=== PATIENT | male | born 1950 | race Caucasian/White ===

== ENCOUNTER → 2017-09-29 07:39 | Outpatient (CLI) | payer MEDICARE, OTHER, SELFPAY ==
[2017-09-29 07:59] LABS: Bacteria Urine None Seen; WBC Urine None Seen (0-5/HPF)
[2017-09-29 08:45] LABS: Add Manual Diff / Slide Review NO; Basophils Percent Auto 1.6 % (0-2); Eosinophils Percent Auto 5.8 % (2-4); Hematocrit 47.5 % (41-53); Hemoglobin 16.4 g/dL (13.5-17.5); Lymphocytes Percent Auto 23.7 % (25-40); Mean Corpuscular HGB Conc 34.6 % (30-36); Mean Corpuscular Hemoglobin 30.4 PG (26-34); Mean Corpuscular Volume 87.9 fL (80-100); Monocytes Percent Auto 11.2 % (3-14); Neutrophils Absolute Auto 2700 /uL (3000-5900); Neutrophils Percent Auto 57.7 % (50-75); Platelet Count 189 X10^3/uL (150-400); Red Blood Cell Count 5.41 X10^6/uL (4.5-5.9); White Blood Cell Count 4.7 X10^3/uL (4.5-11.0)
[2017-09-29 09:00] LABS: Erythrocyte Sedimentation Rate 1 MM/HR (0-15)
[2017-09-29 09:15] LABS: Appearance Urine UA CLEAR; Bilirubin Urine UA NEGATIVE (NEGATIVE); Color Urine UA YELLOW; Glucose Urine UA NEGATIVE (Normal); Ketones Urine UA NEGATIVE (NEGATIVE); Leukocyte Esterase Urine UA NEGATIVE (NEGATIVE); Nitrite Urine UA Negative (Negative); Occult Blood Urine UA TRACE-INTACT (Negative); Protein Urine UA NEGATIVE (Negative); Specific Gravity Urine UA <=1.005 (1.000-1.035); Urobilinogen Urine UA 0.2 E.U./dL (0.2); pH Urine UA 6.5 (4.5-8.0)
[2017-09-29 09:19] LABS: Culture Indicated Urine Cult Not Indicated; RBC Urine 0-1/HPF (0-5/HPF)
[2017-09-29 09:20] LABS: Alanine Aminotransferase 34 IU/L (21-72); Albumin 4.3 g/dL (3.5-5.0); Albumin Globulin Ratio 1.4 (1.0-2.8); Alkaline Phosphatase 56 U/L (38-126); Aspartate Aminotransferase 26 IU/L (17-59); BUN Creatinine Ratio 16.4 (6-22); Bilirubin Total 0.6 mg/dL (0.2-1.3); Blood Urea Nitrogen 18 mg/dL (9-20); Calcium 9.5 mg/dL (8.4-10.2); Carbon Dioxide 30 mmol/L (22-32); Chloride 101 mmol/L (98-107); Estimated Glomerular Filt Rate > 60.0 mL/min (>60); Glucose 102 mg/dL (80-110); HEMOLYSIS < 15 (0-50); Lipase 60 U/L (23-300); Potassium 4.2 mmol/L (3.4-5.1); Sodium 141 mmol/L (137-145); Total Protein 7.3 g/dL (6.3-8.2)
== END ==
PROVIDERS: Visit Provider Internal Medicine
DX: R10.30 Lower abdominal pain, unspecified (principal)
CPT/HCPCS: 36415; 80053; 81001; 83690; 84443; 85025; 85651

== ENCOUNTER → 2018-01-13 12:25 | Outpatient (CLI) | payer MEDICARE, OTHER, SELFPAY ==
[2018-01-13 14:05] LABS: BUN Creatinine Ratio 14.5 (6-22); Blood Urea Nitrogen 16 mg/dL (9-20); Estimated Glomerular Filt Rate > 60.0 mL/min (>60)
== END ==
PROVIDERS: Visit Provider Internal Medicine
DX: R10.84 Generalized abdominal pain (principal)
CPT/HCPCS: 36415; 82565; 84520

== ENCOUNTER → 2018-01-14 08:55 | Outpatient (CLI) | payer MEDICARE, OTHER, SELFPAY ==
--- NOTE | 2018-01-14 | DI.CT.S_ITS ---
PROCEDURE: CT ABDOMEN PELVIS W CON INDICATIONS: ABDOMINAL PAIN TECHNIQUE: After the administration of oral and intravenous contrast, 5 mm thick sections acquired from the diaphragms to the symphysis. 5 mm thick coronal and sagittal reformats were performed. For radiation dose reduction, the following was used: automated exposure control, adjustment of mA and/or kV according to patient size. COMPARISON: [facility], MR, L-SPINE WITHOUT CONTRAST, 09/11/2015, 11:02. [facility], CR, KUB XRAY (1 VIEW ABDOMEN), 09/18/2015, 11:40. FINDINGS: Image quality: Excellent. ABDOMEN: Lung bases: Lung bases are clear. Heart size is normal. Solid organs: Liver is normal in size and enhancement. Gallbladder wall does not appear thickened. Biliary system is non-dilated. Pancreas enhances normally. Spleen is normal in size and enhancement. No adrenal nodules. Kidneys are normal in size and enhancement. There is mild left-sided hydronephrosis. No cause of obstruction can be seen. There is a nonenhancing cysts involving the mid left kidney that measures at least 4.5 cm. Incidental note is made of a circumaortic left renal vein. Peritoneum and bowel: Stomach, small bowel, and colon loops are normal in caliber and wall thickness. The cecum is low-lying. No free fluid or air. Diverticulosis is seen, without findings of active diverticulitis. Nodes and vessels: No retroperitoneal or mesenteric adenopathy. Aorta and inferior vena cava are normal in caliber. Miscellaneous: No ventral hernias. PELVIS: Genitourinary: Bladder wall thickness is normal. Miscellaneous: No inguinal hernias or adenopathy. Bones: No suspicious bony lesions. No vertebral body compression fractures. Degenerative changes are seen throughout, which are most prominent involving the lower lumbar spine. S-shaped scoliotic curvature is seen. IMPRESSION: Mild left-sided hydronephrosis, without a cause of obstruction identified. Incidental note is made of: Simple appearing left renal cyst Diverticulosis is seen, without findings of active diverticulitis. Dictated by: Simon Paniagua M.D. on 01/14/2018 at 10:34 Approved by: Simon Paniagua M.D. on 01/14/2018 at 10:38
== END ==
PROVIDERS: Visit Provider Internal Medicine
DX: R10.9 Unspecified abdominal pain (principal); N13.30 Unspecified hydronephrosis; N28.1 Cyst of kidney, acquired; K57.90 Diverticulosis of intestine, part unspecified, without perforation or abscess without bleeding; M51.36 Other intervertebral disc degeneration, lumbar region
CPT/HCPCS: 74177; Q9967

== ENCOUNTER → 2018-01-18 11:52 | Outpatient (CLI) | payer MEDICARE, OTHER, SELFPAY ==
[2018-01-18 13:33] LABS: Blood Urea Nitrogen 17 mg/dL (9-20)
[2018-01-18 14:02] LABS: Prostate Specific Antigen Scrn 0.812 ng/mL (0.1-4.0)
[2018-01-18 18:56] LABS: BUN Creatinine Ratio 15.5 (6-22); Estimated Glomerular Filt Rate > 60.0 mL/min (>60)
== END ==
PROVIDERS: PCP Internal Medicine; Visit Provider Internal Medicine
DX: N40.0 Benign prostatic hyperplasia without lower urinary tract symptoms (principal); R10.84 Generalized abdominal pain
CPT/HCPCS: 36415; 82565; 84520; G0103

== ENCOUNTER → 2018-01-28 08:02 | Outpatient (CLI) | payer MEDICARE, OTHER, SELFPAY ==
[2018-01-28 09:02] LABS: BUN Creatinine Ratio 17.3 (6-22); Blood Urea Nitrogen 19 mg/dL (9-20); Estimated Glomerular Filt Rate > 60.0 mL/min (>60)
== END ==
PROVIDERS: PCP Internal Medicine; Visit Provider Internal Medicine
DX: N13.30 Unspecified hydronephrosis (principal)
CPT/HCPCS: 36415; 82565; 84520

== ENCOUNTER → 2018-01-29 11:06 | Outpatient (CLI) | payer MEDICARE, OTHER, SELFPAY ==
--- NOTE | 2018-01-29 | DI.CT.S_ITS ---
PROCEDURE: CT ABDOMEN PELVIS WO/W CON INDICATIONS: HYDRONEPHROSIS TECHNIQUE: Optional 5 mm thick noncontrast images acquired from the diaphragm to the symphysis pubis. After the administration of intravenous contrast, 5 mm thick images acquired from the diaphragm to the symphysis pubis after a 10-minute delay. 2 mm thick coronal and sagittal reformats were then performed of the kidneys and ureters. For radiation dose reduction, the following was used: automated exposure control, adjustment of mA and/or kV according to patient size. COMPARISON: [facility], CT, CT ABDOMEN PELVIS W CON, 01/14/2018, 9:35. FINDINGS: Image quality: Excellent. Lung bases: Lung bases are clear. Heart size is normal. Urinary system: Both kidneys are normal in size, without hydronephrosis or nephrolithiasis on pre-contrast images. No perinephric fat stranding. There is normal bilateral renal enhancement. Subcentimeter low-density cystic lesions are present within the bilateral renal cortices consistent with multiple simple renal cysts. An exophytic 3.0 cm diameter cystic lesion is present off the lower pole of the left kidney. Renal calyces appear normal in morphology when filled with contrast. Opacified portions of both ureters demonstrate normal caliber. Bladder wall thickness is normal. No calcified bladder stones. Other solid organs: Liver is normal in size and enhancement. Gallbladder is unremarkable. Biliary system is non dilated. Pancreas enhances normally. Spleen is normal in size and enhancement. No adrenal nodules. Peritoneum and bowel: Bowel loops demonstrate normal wall thickness and caliber. The appendix is thin walled and gas filled. No free fluid or air. Nodes and vessels: No retroperitoneal or mesenteric adenopathy by size criteria. Aorta and inferior vena cava are normal in size. There are scattered atheromatous calcifications throughout the aorta and iliac arteries bilaterally. Abdominal wall: No ventral hernias. Pelvis: No pathologic free pelvic fluid. No inguinal hernias or adenopathy. Bones: No suspicious bony lesions. No vertebral body compression fractures. IMPRESSION: 1. No nephrolithiasis, hydronephrosis, hydroureter, or ureterolithiasis. Dictated by: Griselda Díaz M.D. on 01/29/2018 at 13:10 Approved by: Griselda íDaz M.D. on 01/29/2018 at 13:32
== END ==
PROVIDERS: PCP Internal Medicine; Visit Provider Internal Medicine
DX: N13.30 Unspecified hydronephrosis (principal)
CPT/HCPCS: 74178; Q9967

== ENCOUNTER 2018-03-24 08:48 | Day surgery (SDC) | payer MEDICARE, OTHER, SELFPAY ==
--- NOTE | 2018-03-24 | PATH_ITS ---
[facility] Accession Number: [id number] . 01 Material submitted: . ASCENDING COLON POLYP . 02 Diagnosis: Ascending Colon, Polyp, Biopsy: Tubular adenoma. MRV/03/25/2018 . 02 Electronically signed: . Jennifer Davila MD, Pathologist NPI- [id number] . 01 Gross description: . Received one formalin-filled container labeled with the patient's name and labeled ascending colon polyp. The specimen consists of a 0.3 cm portion of tissue, entirely submitted in one cassette. ([id number]) /FRR . 02 Pathologist provided ICD-10: D12.2 . 02 CPT . 047889 Performed at: 01 [facility] [place] [address] [id number] MD Ashu Carney MD Phone: [phone] Performed at: 02 [facility] [place] [address] [place], [place] [id number] MD Jennifer Davila MD Phone: [phone]
--- NOTE | 2018-03-24 07:56 | PM.HP.1 ---
History of Present Illness Date Patient Seen: 03/24/18 Chief complaint: [id number] Colonoscopy Narrative: 67-year-old male seen in our office on 02/23/2018 for lower abdominal pain with unremarkable CT. Patient is here for colonoscopy to rule out colon cancer. Please refer to our office note 02/23/2018 further details Patient History Social History household members: spouse Meds Home Medications Medication Instructions Recorded Confirmed Type aspirin 81 mg PO DAILY 03/24/18 03/24/18 History carisoprodol 350 mg PO Q6H PRN 03/24/18 03/24/18 History olmesartan 20 mg PO DAILY 03/24/18 03/24/18 History omeprazole 20 mg PO DAILY 03/24/18 03/24/18 History Allergies Allergy/AdvReac Type Severity Reaction Status Date / Time codeine Allergy Intermediate Rash Verified 03/24/18 09:05 oxaprozin Allergy Hives Verified 03/24/18 09:34 Exam Narrative Exam Narrative: General: Patient is overweight, not in apparent distress Cardiovascular: Regular rate and rhythm, no murmurs, rubs, or gallops; no evidence of edema; no palpable abdominal aortic aneurysm Gastrointestinal: Normoactive bowel sounds, soft, nontender, nondistended, no rebound tenderness, no hepatosplenomegaly, no evidence of hernia Assessment & Plan (1) Colon cancer screening: Current visit: No Status: Acute Assessment/Plan Narrative: 67-year-old male with a history of lower abdominal pain who is here for colon cancer screening. No current alarm symptoms. Regarding the procedure(s), the risks and potential complications, benefits, and alternatives (including not doing the procedure) were discussed with the patient. The risks include but are not limited to bleeding, splenic injury, infection, perforation which may require surgical intervention, missed lesions, and adverse reactions to sedative medicines. After a question and answer period, the patient agreed to proceed with the procedure(s) and gives informed consent.
[2018-03-24] MEDS: SODIUM CHLORIDE 0.9% 1,000 ML 70 ML IV (09:23)
[2018-03-24 09:24] VITALS: BP 139/81; PULSE 55; RESP 16; TEMP 35.7; O2SAT 95
[2018-03-24 09:25] VITALS: BMI 29.8
[2018-03-24] MEDS: fentaNYL 250 MCG/5 ML INJ IV (10:05)
[2018-03-24] MEDS: MIDAZOLAM 5 MG/5 ML VIAL IV (10:05)
[2018-03-24 10:21] VITALS: BP 107/67; PULSE 50; RESP 14; TEMP 36.2; O2SAT 95
--- NOTE | 2018-03-24 10:23 | PM.OP.ENDO ---
Operative Date/Time/Diagnoses Date of procedure: 03/24/18 Procedure Notes Procedure in detail: Surgeon: Theo Valentine MD Procedure: Colonoscopy with polypectomy Preoperative diagnosis: Colon cancer screening Postoperative diagnosis: Ascending colon polyp status post polypectomy, sigmoid diverticulosis, grade 2 internal hemorrhoids Medications: Conscious sedation using 6 mg IV of Midazolam and 150 mcg IV of Fentanyl Preanesthesia Assessment An H and P was performed/updated and the Px?s ASA class is 2. The procedure was discussed in detail with the patient. The potential risks and complications including infection, bleeding, missed lesions, perforation, need for surgery in case of perforation, prolonged hospital stay, and were explained. A brief question and answer period was allotted and once all questions were answered, informed consent was obtained. The patient was brought back to the procedure room and placed on standard monitoring. The patient?s vital signs were monitored continuously throughout the entire procedure. Prior to starting, a timeout was performed to confirm the patient?s identity, allergies, medications, and procedure. Procedure in detail The patient was placed in left lateral decubitus position and once adequate sedation was obtained a ESTEFANIA was performed. The digital rectal examination did not reveal any palpable lesions. The tip of the colonoscope was placed in the anal canal and advanced without difficulty all the way to the cecum which was identified by the appendiceal orifice and the ileocecal valve. Careful examination of all mccormick of the colon was performed with irrigation of any residual stool. In the ascending colon, there was note of a 2 mm sessile polyp which was removed by means of cold Jumbo forceps. Resection retrieval were complete with minimal bleeding. In the sigmoid colon, there was note of multiple medium-size diverticula Retroflexion was performed in the rectum which revealed grade 2 internal hemorrhoids The patient tolerated the procedure well and will be brought back to the recovery area to be discharged once criteria are met. The prep was judged to be good and adequate to identify polyps less than 5 mm. The withdrawal time was 8 min. The total physician intraservice time was 16 min. Complications There were no complications and estimated blood loss was minimal. Recommendations: Resume previous diet Continue outPx medications Follow up pathology results Repeat colonoscopy in 5 or 10 years depending on pathology results Office follow up with Dr. Murphy, if patient has any persistent lower abdominal pain An emergency contact number was given to the patient for any complications related to the procedure
[2018-03-24 10:26] VITALS: BP 100/43; PULSE 72; RESP 14; O2SAT 97
--- NOTE | 2018-03-24 10:28 | PM.DS.1 ---
History of Present Illness Chief complaint: [id number] Colonoscopy Narrative: 67-year-old male seen in our office on 02/23/2018 for lower abdominal pain with unremarkable CT. Patient is here for colonoscopy to rule out colon cancer. Please refer to our office note 02/23/2018 further details Discharge Providers Primary care physician: Bhupinder Siddiqi MD Discharge provider: Theo Valentine MD Discharge Date: 03/24/18 Exam Vital Signs (past 8 hours): - 03/24/18 09:24 Temperature 96.3 F L Pulse Rate 55 L Respiratory Rate 16 Blood Pressure 139/81 Pulse Oximetry 95 Oxygen Delivery Method Room Air Narrative Exam Narrative: General: Patient is overweight, not in apparent distress Cardiovascular: Regular rate and rhythm, no murmurs, rubs, or gallops; no evidence of edema; no palpable abdominal aortic aneurysm Gastrointestinal: Normoactive bowel sounds, soft, nontender, nondistended, no rebound tenderness, no hepatosplenomegaly, no evidence of hernia Discharge Plan Discharge Plan Patient Disposition: Home Discharge comment: We will discharge you with a copy of your procedure report Discharge Med Rec/Prescriptions Prescriptions: Continued aspirin 81 mg PO DAILY RF: 0 carisoprodol 350 mg PO Q6H PRN (Reason: Pain (Scale Score 4-6)) RF: 0 olmesartan 20 mg PO DAILY RF: 0 omeprazole 20 mg PO DAILY RF: 0 Follow up/Referrals: Bhupinder Siddiqi MD [Primary Care Provider] - Discharge Orders: Discharge (Order); Ordered 03/24/18 Ordered By: Theo Valentine Visit Report/Discharge Packet Stand Alone Forms: Colonoscopy Result: [facility], Surgery Discharge Discharge Data Primary Care Provider: Bhupinder Siddiqi V Attending Provider: Theo Valentine
[2018-03-24 10:31] VITALS: BP 112/65; PULSE 47; RESP 13; O2SAT 95
--- NOTE | 2018-03-24 10:34 | SUR.PHASEI ---
assumed care from vlad, stable pacu stay.
[2018-03-24 10:41] VITALS: BP 114/78; PULSE 55; RESP 12; TEMP 36.6; O2SAT 97
[2018-03-24 11:00] VITALS: BP 122/75; PULSE 53; RESP 16; TEMP 36.6; O2SAT 98
--- NOTE | 2018-03-24 11:07 | SUR.PHASEII ---
d/c instructions discussed with both pt and spouse. both voiced an understanding. pt dressed when ready and left when ready and left in stable condition.
== END 2018-03-24 11:19 | disposition home or self-care (01) ==
PROVIDERS: PCP Internal Medicine; Visit Provider Internal Medicine Gastroenterology
PROC: 0DJD8ZZ Inspection of Lower Intestinal Tract, Via Natural or Artificial Opening Endoscopic (ICD-10-PCS; CPT 45378; principal; 2018-03-24 10:00)
DX: Z12.11 Encounter for screening for malignant neoplasm of colon (principal); K57.30 Diverticulosis of large intestine without perforation or abscess without bleeding; K64.1 Second degree hemorrhoids; D12.2 Benign neoplasm of ascending colon
CPT/HCPCS: 45380; 88305; J2250; J3010

== ENCOUNTER → 2018-12-14 16:16 | Outpatient (CLI) | payer MEDICARE, OTHER, SELFPAY ==
--- NOTE | 2018-12-14 | DI.MRI.S_ITS ---
PROCEDURE: MR SHOULDER LT WO CON INDICATIONS: Pain in Left Shoulder with decreased range of motion TECHNIQUE: Noncontrast oblique coronal T2 fast spin echo with fat saturation, oblique sagittal T1 spin echo and T2 fast spin echo with fat saturation, axial T1 spin echo and T2 fast spin echo with fat saturation through the shoulder. COMPARISON: None. FINDINGS: Image quality: Excellent. Rotator cuff: Tendinosis and low to moderate grade articular and bursal surface partial thickness tear involving distal supraspinatus near its insertion on humeral head is seen. Distal infraspinatus tendinosis is also noted. The distal subscapularis tendon is intact. No full-thickness rotator cuff tendon rupture. Sagittal images demonstrate no significant muscle atrophy. Bones and bursae: No bone marrow contusions or fractures. Moderate acromioclavicular joint osteoarthritis is seen with downward osteophyte formation compressing on musculotendinous junction of supraspinatus. No pathologic subacromial-subdeltoid or subcoracoid bursal fluid is present. Capsule and soft tissues: In the absence of intra-articular contrast, there is signal abnormality and contour irregularity involving superior anterior labrum extending from 12 to 2:00 position and anterior-inferior labrum at the 4 to 6:00 position suggestive of labral tear. The glenohumeral ligaments appear intact. The long head of the biceps tendon demonstrates normal location and morphology. The rotator interval appears normal, without fibrosis. The coracohumeral ligament is normal in thickness. IMPRESSION: 1. Findings suggestive of superior anterior labral tear 12 to 2:00 position and anterior-inferior labral tear at 4 to 6:00 position. 2. Moderate acromioclavicular joint osteoarthritis. 3. Tendinosis and low to moderate grade articular and bursal surface partial-thickness tear involving distal supraspinatus extending to musculotendinous junction. Distal infraspinatus tendinosis. Dictated by: Gerard Ni M.D. on 12/15/2018 at 9:30 Approved by: Gerard Ni M.D. on 12/15/2018 at 9:37
== END ==
PROVIDERS: PCP Internal Medicine; Visit Provider Orthopaedic Surgery
DX: M25.512 Pain in left shoulder (principal); M19.012 Primary osteoarthritis, left shoulder; M75.112 Incomplete rotator cuff tear or rupture of left shoulder, not specified as traumatic
CPT/HCPCS: 73221

== ENCOUNTER → 2019-11-08 18:52 | Outpatient (ROUT) | payer MEDICARE, OTHER, SELFPAY ==
[2019-11-08 19:12] LABS: Aspartate Aminotransferase 33 IU/L (17-59); BUN Creatinine Ratio 16.8 (6-22); Blood Urea Nitrogen 20 mg/dL (9-20); Calcium 9.7 mg/dL (8.4-10.2); Carbon Dioxide 26 mmol/L (22-32); Chloride 102 mmol/L (98-107); Cholesterol 274 mg/dL (140-199); Estimated Glomerular Filt Rate > 60.0 mL/min (>60); Glucose 96 mg/dL (80-110); HDL Cholesterol 58 mg/dL (40-60); HEMOLYSIS 18 (0-50); LDL Cholesterol Calculated 171 mg/dL (<100); Potassium 4.7 mmol/L (3.4-5.1); Sodium 138 mmol/L (137-145); Triglycerides 227 mg/dL (35-150)
== END ==
PROVIDERS: PCP Internal Medicine; Visit Provider Internal Medicine
DX: I10 Essential (primary) hypertension (principal); E78.2 Mixed hyperlipidemia; N40.0 Benign prostatic hyperplasia without lower urinary tract symptoms
CPT/HCPCS: 80048; 80061; 84153; 84450

== ENCOUNTER → 2019-12-19 07:10 | Outpatient (CLI) | payer MEDICARE, OTHER, SELFPAY ==
--- NOTE | 2019-12-19 | DI.MRI.S_ITS ---
PROCEDURE: MR HEAD/BRAIN WO/W CON INDICATIONS: Otalgia, right ear TECHNIQUE: Noncontrast axial T1 spin echo, axial T2 fast spin echo, sagittal and axial FLAIR, coronal T2 fast spin echo, axial gradient echo, axial diffusion and ADC through the brain. After the administration of contrast, axial and coronal T1 spin echo with fat saturation through the brain. COMPARISON: None. FINDINGS: Image quality: Excellent. CSF spaces: Basal cisterns are patent. No extra-axial fluid collections. Ventricles are normal in size and shape. Brain: No midline shift. No intracranial bleeds or masses. No abnormal intracranial enhancement. There is cerebral volume loss for age. There is periventricular white matter chronic small vessel ischemic change. The brainstem appears normal. Diffusion-weighted images demonstrate no acute ischemic insults. No chronic ischemic insults. Normal intravascular flow voids are present. Skull and face: Calvarial marrow is normal in signal. Orbits appear normal. Sinuses: Sinuses and mastoids appear clear. IMPRESSION: No evidence of acute ischemia. No acute intracranial signal abnormality or enhancement. No specific visualized etiology for right ear pain. Minimal bilateral maxillary sinus disease Dictated by: José Valdes M.D. on 12/19/2019 at 9:19 Approved by: José Valdes M.D. on 12/19/2019 at 9:38
== END ==
PROVIDERS: PCP Internal Medicine; Referring Provider Internal Medicine; Visit Provider Otolaryngology Facial Plastic Surgery
DX: H92.01 Otalgia, right ear (principal)
CPT/HCPCS: 70553

== ENCOUNTER → 2019-12-22 08:39 | Outpatient (CLI) | payer MEDICARE, OTHER, SELFPAY ==
[2019-12-22 10:33] LABS: Add Manual Diff / Slide Review NO; Basophils Absolute Auto 100 /uL (0-100); Eosinophils Absolute Auto 200 /uL (0-450); Hematocrit 46.5 % (41-53); Hemoglobin 15.7 g/dL (13.5-17.5); Lymphocytes Absolute Auto 1100 /uL (1100-4500); Mean Corpuscular HGB Conc 33.7 % (30-36); Mean Corpuscular Hemoglobin 30.3 PG (26-34); Mean Corpuscular Volume 89.7 fL (80-100); Monocytes Absolute Auto 600 /uL (0-900); Neutrophils Absolute Auto 2600 /uL (1500-7000); Platelet Count 182 X10^3/uL (150-400); Red Blood Cell Count 5.19 X10^6/uL (4.5-5.9); Red Cell Distribution Width 13.4 % (11.6-14.8); White Blood Cell Count 4.7 X10^3/uL (4.5-11.0)
== END ==
PROVIDERS: PCP Internal Medicine; Referring Provider Otolaryngology Facial Plastic Surgery; Visit Provider Otolaryngology Facial Plastic Surgery
DX: H92.01 Otalgia, right ear (principal)
CPT/HCPCS: 36415; 85025

== ENCOUNTER → 2020-04-03 10:06 | Outpatient (CLI) | payer MEDICARE, OTHER, SELFPAY ==
--- NOTE | 2020-04-03 10:11 | DI.RAD.S_ITS ---
PROCEDURE: XR LUMBAR SPINE 2-3V INDICATIONS: RIGHT SIDED SCIATICA TECHNIQUE: 3 views of the lumbar spine were acquired. COMPARISON: None. FINDINGS: Bones: 5 [id number] vertebrae are present. There is normal bony alignment. No vertebral body compression fractures. No suspicious bony lesions. Moderate L4-L5 degenerative disc disease. Mild to moderate L1-L2, L2-L3 and L3-L4 degenerative disc disease. Mild L5-S1 degenerative disc disease. Mild bilateral L4-L5 and L5-S1 facet hypertrophy. Soft tissues: Overlying bowel gas pattern is normal. No suspicious soft tissue calcifications. IMPRESSION: 1. Multilevel degenerative disc disease. 2. Multilevel facet arthropathy. 3. No fracture. No acute osseous lesion. If symptoms and/or clinical suspicion for pathology persists, evaluation with MRI should be considered for further assessment. Dictated by: Katia Salinas MD, PhD on 04/03/2020 at 17:08 Approved by: Katia Salinas MD, PhD on 04/03/2020 at 17:09
== END ==
PROVIDERS: PCP Internal Medicine; Referring Provider Internal Medicine; Visit Provider Internal Medicine
DX: M51.16 Intervertebral disc disorders with radiculopathy, lumbar region (principal); M51.17 Intervertebral disc disorders with radiculopathy, lumbosacral region; M47.26 Other spondylosis with radiculopathy, lumbar region; M47.27 Other spondylosis with radiculopathy, lumbosacral region
CPT/HCPCS: 72100

== ENCOUNTER → 2020-05-17 07:11 | Outpatient (CLI) | payer MEDICARE, OTHER, SELFPAY ==
--- NOTE | 2020-05-17 07:12 | DI.MRI.S_ITS ---
PROCEDURE: MR LUMBAR SPINE WO CON INDICATIONS: lumbar radiculopathy TECHNIQUE: Noncontrast sagittal T1 spin echo and T2 fast echo, sagittal STIR, axial T1 and T2 fast spin echo through the lumbar spine. In cases with scoliosis, additional coronal T2 fast spin echo may be performed. COMPARISON: [facility], CR, XR LUMBAR SPINE 2-3V, 04/03/2020, 10:15. [facility], MR, L-SPINE WITHOUT CONTRAST, 09/11/2015, 11:02. FINDINGS: Image quality: Excellent. Alignment and Curvature: There is loss of normal lumbar lordosis. Mild grade 1 retrolisthesis of L1 on L2 and L3 on L4. Bone Marrow: Marrow is of normal overall signal. No acute vertebral body compression fractures. Mild reactive signal within the endplates adjacent to the L1-L2, L2-L3, L3-L4, and L4-L5 intervertebral discs. Spinal Cord: Conus medullaris terminates at the L1-L2 disc space level. Visualized cord demonstrates normal signal and size. Paraspinous Soft Tissues: No paravertebral masses. T12-L1: Moderate disc height loss and desiccation. Mild diffuse disc bulge. Mild facet and ligamentum flavum hypertrophy. Mild canal stenosis. Moderate right and mild left foraminal stenosis. No change. L1-L2: Moderate disc height loss and desiccation. Mild diffuse disc bulge with superimposed right paracentral protrusion. Mild facet and ligamentum flavum hypertrophy. Mild epidural lipomatosis. Mild canal stenosis. Mild bilateral foraminal stenosis. No change. L2-L3: Moderate disc height loss and desiccation. Mild diffuse disc bulge. Mild facet and ligamentum flavum hypertrophy. Mild epidural lipomatosis. Mild canal stenosis. Mild bilateral foraminal stenosis. No change. L3-L4: Moderate disc height loss and desiccation. Mild diffuse disc bulge/osteophyte. Mild facet and ligamentum flavum hypertrophy. Mild epidural lipomatosis. Mild canal stenosis. Moderate bilateral foraminal stenosis. No change. L4-L5: Moderate disc height loss and desiccation. Mild diffuse disc bulge. Mild facet and ligamentum flavum hypertrophy. Mild canal stenosis. Moderate bilateral foraminal stenosis. No change. L5-S1: Mild disc height loss. Moderate disc desiccation. Mild diffuse disc bulge. Mild facet hypertrophy bilaterally. Mild canal stenosis. Severe left and moderate right subarticular foraminal stenosis. Left L5 nerve root compression. No change. IMPRESSION: 1. Multilevel degenerative disc and facet disease, as well as ligamentum flavum hypertrophy and epidural lipomatosis. 2. Mild multilevel canal stenoses. 3. Multilevel foraminal stenosis, worst on the left at L5-S1 where there is associated intraforaminal nerve root compression. Recommend correlation with clinical symptoms to ascertain relevance of this finding. Dictated by: Niko Cooley M.D. on 05/17/2020 at 10:54 Approved by: Niko Cooley M.D. on 05/17/2020 at 11:07
== END ==
PROVIDERS: PCP Internal Medicine; Referring Provider Physical Medicine & Rehabilitation; Visit Provider Physical Medicine & Rehabilitation
DX: M51.26 Other intervertebral disc displacement, lumbar region (principal); M51.36 Other intervertebral disc degeneration, lumbar region; M48.061 Spinal stenosis, lumbar region without neurogenic claudication
CPT/HCPCS: 72148

== ENCOUNTER → 2020-06-04 14:12 | Outpatient (CLI) | payer MEDICARE, OTHER, SELFPAY ==
[2020-06-04 15:35] LABS: COVID19 -Nasal RAPID Negative (Negative)
== END ==
PROVIDERS: PCP Internal Medicine; Visit Provider Physical Medicine & Rehabilitation
DX: Z20.822 Contact with and (suspected) exposure to COVID-19 (principal)
CPT/HCPCS: 87635; C9803

== ENCOUNTER 2020-06-05 14:56 | Outpatient (CLI) | payer MEDICARE, OTHER, SELFPAY ==
[2020-06-05] VITALS (9 sets, daily range): BP systolic 136–167; BP diastolic 70–86; PULSE 53–60; RESP 12–20; TEMP 36.1; O2SAT 94–98
--- NOTE | 2020-06-05 15:01 | DI.RAD.S_ITS ---
PROCEDURE: PAIN L/S TRANSFORAMINAL INJECT INDICATIONS: SPONDYLOSIS COMPARISON: [facility], CR, XR LUMBAR SPINE 2-3V, 04/03/2020, 10:15. FINDINGS: Fluoroscopic spot filming was performed to verify placement of a spinal needle at the L4-L5 level, as labeled on the films. Appropriate location of the needle tip was confirmed by injection of iodinated contrast. IMPRESSION: Intraprocedural examination within normal limits. Dictated by: Simon Paniagua M.D. on 06/05/2020 at 15:39 Approved by: Simon Paniagua M.D. on 06/05/2020 at 15:40
[2020-06-05] MEDS: fentaNYL 100 MCG/2 ML INJ 50 MCG IV (15:43)
[2020-06-05] MEDS: MIDAZOLAM 5 MG/5 ML VIAL IV (15:43)
[2020-06-05] MEDS: IOPAMIDOL 15 ML VIAL 3 ML INJ (15:47)
[2020-06-05] MEDS: BUPIVACAINE 0.25% (PF) VIAL 2 ML INJ (15:47)
[2020-06-05] MEDS: BETAMETHASONE 30 MG/5 ML MDV 6 MG INJ (15:47)
[2020-06-05] MEDS: DEXAMETHASONE 10 MG/ML VIAL 20 MG INJ (15:47)
--- NOTE | 2020-06-05 16:00 | P.PCN_ITS ---
Date/Time/Diagnoses Date of procedure: 06/05/20 Time of procedure: 16:00 Pre-procedure diagnosis: 1. FORAMINAL STENOSIS WITH LE SYMPTOMS Post-procedure diagnosis: same Procedure Notes Procedure: 1. FLUOROSCOPICALLY GUIDED CONTRAST CONTROLLED TRANSFORAMINAL EPIDURAL STEROID INJECTION - RIGHT L4/5 TFESI Indications: Ronald is referred by Dr. Siddiqi for treatment of Foraminal Stenosis with Right LE Symptoms Physician: Elfego Wylie Total Fluoroscopy time (seconds): 13 Total sedation minutes: 13 Complications: none Procedure in detail & Post-procedure care: FINDINGS Foraminal Nerve Root Compression secondary to disc disease and facet hypertrophy DESCRIPTION OF PROCEDURE Following review of allergy and review of potential side effects and complications, including, but not necessarily limited to, infection, allergic reaction, local tissue breakdown, stroke, temporary or permanent nerve injury, paralysis, and possible , the patient indicated that the patient understood and agreed to proceed. An informed consent document was signed by the patient, witnessed by a nurse, and placed in the patient's chart. Additionally, other treatment options including medications, modalities, and physical therapy were reviewed with the patient. After review of previous anaesthesic history and IV conscious sedation the patient was deemed safe to proceed with today?s procedure with IV conscious sedation as ASA class II designation. Safety time-out was performed to confirm patient ID, procedure to be performed and site of procedure. IV sedation was accomplished with a combination of 2mg of Versed and 50mcg of Fentanyl was administered by the RN after DO order, titrated to patient comfort during the course of the procedure while the patient remained responsive to all verbal commands In the prone position following sterile prep and drape of the lumbar region, the right L4/5 posterior neuroforamen was identified fluoroscopically. The skin was anesthetized via a 25-gauge 1.5-inch needle with 1% lidocaine solution. At this point, a 25-gauge 3.5-inch spinal needle was atraumatically introduced and advanced under fluoroscopic guidance through the posterior right L4/5 neuroforamen to approximately the anterior aspect of the canal. Depth was confirmed on lateral view. Following negative aspiration, injection of approximately 1.5cc of Isovue 200 under live fluoroscopy in the AP view confirmed excellent flow along the nerve root, into the epidural space without vascular or intrathecal uptake observed Radiological data, including multiple fluoroscopic views of the lumbosacral spine, reveal a spinal needle at the right L4/5 posterior neuroforamen. Subsequent views show flow of contrast material flowing superiorly and inferiorly along the nerve root confirming epidural flow. Subsequently, a test dose of 1.5 cc of 1% lidocaine solution was administered and patient was observed for two minutes for signs or symptoms of complications, including abdominal pain, shortness of breath, bilateral upper or lower extremity weakness, nausea and vomiting, prior to steroid injection. At this point, a total of 3cc or 20mg of dexamethasone and 6mg of betamethasone was injected without incident. The procedure tolerated the procedure well without signs or symptoms of complications prior to transfer to the recovery area continued monitoring without incident. The patient was then transferred to the recovery area where they were observed for an appropriate time after the injection. The patient reported a VAS score of 7 prior to the procedure and a post- procedure VAS of 0. POST OP INSTRUCTIONS The patient was provided a Pain Log to continue to record their response to the target-specific procedure prior to follow-up visit with their referring physician. Additionally, specific post-injection care instructions and a contact number to our office were provided if concerns arise regarding possible complications associated with the procedure are suspected.
== END 2020-06-05 16:20 | disposition home or self-care (01) ==
LOC: RAD 14:59
PROVIDERS: PCP Internal Medicine; Referring Provider Physical Medicine & Rehabilitation; Visit Provider Physical Medicine & Rehabilitation
DX: M48.061 Spinal stenosis, lumbar region without neurogenic claudication (principal); M51.16 Intervertebral disc disorders with radiculopathy, lumbar region
CPT/HCPCS: 64483; 99152; J0702; J1100; J2250; J3010

== ENCOUNTER → 2020-08-07 14:22 | Outpatient (CLI) | payer MEDICARE, OTHER, SELFPAY ==
[2020-08-07 15:00] LABS: COVID19 -Nasal RAPID Negative (Negative)
== END ==
PROVIDERS: PCP Internal Medicine; Visit Provider Physical Medicine & Rehabilitation
DX: Z20.822 Contact with and (suspected) exposure to COVID-19 (principal)
CPT/HCPCS: 87635; C9803

== ENCOUNTER 2020-08-09 07:27 | Outpatient (CLI) | payer MEDICARE, OTHER, SELFPAY ==
[2020-08-09] VITALS (7 sets, daily range): BP systolic 133–181; BP diastolic 66–86; PULSE 46–53; RESP 12–23; TEMP 36.2; O2SAT 97–98
--- NOTE | 2020-08-09 07:29 | DI.RAD.S_ITS ---
PROCEDURE: PAIN L INTERLAMINAR/CAUDAL INJ INDICATIONS: SPONDYLOSIS COMPARISON: None. FINDINGS: Fluoroscopic spot filming was performed to verify placement of spinal needles at the L4-L5 level(s), as labeled on the films. Appropriate location(s) of the needle tip(s) was confirmed by injection of iodinated contrast. Dictated by: José Valdes M.D. on 08/09/2020 at 14:25 Approved by: José Valdes M.D. on 08/09/2020 at 14:25
[2020-08-09] MEDS: fentaNYL 100 MCG/2 ML INJ 50 MCG IV (08:20)
[2020-08-09] MEDS: MIDAZOLAM 5 MG/5 ML VIAL IV (08:20)
[2020-08-09] MEDS: BUPIVACAINE 0.25% (PF) VIAL 2 ML INJ (08:24)
[2020-08-09] MEDS: IOPAMIDOL 15 ML VIAL 3 ML INJ (08:24)
[2020-08-09] MEDS: DEXAMETHASONE 10 MG/ML VIAL 20 MG INJ (08:25)
[2020-08-09] MEDS: methylPREDNISolone acetate 80 MG/ML VIAL INJ (08:27)
--- NOTE | 2020-08-09 08:31 | P.PCN_ITS ---
Date/Time/Diagnoses Date of procedure: 08/09/20 Time of procedure: 08:32 Pre-procedure diagnosis: 1. HNP WITH RADICULAR FEATURES, 2. MULTILEVEL CENTRAL STENOSIS, Post-procedure diagnosis: same Procedure Notes Procedure: 1. FLUOROSCOPICALLY GUIDED CONTRAST CONTROLLED INTERLAMINAR EPIDURAL STEROID INJECTION -L4/5 Indications: Ronald is referred by Dr. Siddiqi for treatment of Bilateral Foraminal Stenosis R>L LE symptoms. Physician: Elfego Wylie Total Fluoroscopy time (seconds): 5 Total sedation minutes: 8 Complications: none Procedure in detail & Post-procedure care: FINDINGS Multilevel Central Spinal Stenosis with Nerve Root Compression DESCRIPTION OF PROCEDURE Fluoroscopically guided, contrast-controlled L4/5 translaminar epidural steroid injection. Following review of allergy and review of potential side effects and complications, including, but not necessarily limited to, infection, allergic reaction, local tissue breakdown, temporary as well as permanent nerve injury, paralysis, stroke and possible , the patient indicated that the patient understood and agreed to proceed. An informed consent document was signed by the patient, witnessed by a nurse, and placed in the patient's chart. Additionally, other treatment options including modalities, medications, and physical therapy were reviewed with the patient. After review of previous anaesthesic history and IV conscious sedation the patient was deemed safe to proceed with today?s procedure with IV conscious sedation as ASA class II designation. Safety time-out was performed to confirm patient ID, procedure to be performed and site of procedure. IV sedation was accomplished with a combination of 2mg of Versed and 50mcg of Fentanyl was administered by the RN after DO order, titrated to patient comfort during the course of the procedure while the patient remained responsive to all verbal commands In the prone position, following sterile prep and drape of the lumbar region, the L4/5 translaminar space was identified fluoroscopically. The skin was anesthetized via a 25-gauge, 1.5inch needle with 1% lidocaine solution. At this point, a 22-gauge short bevel spinal needle was atraumatically introduced and advanced under fluoroscopic guidance into the region of the L4/5 translaminar space. Depth was confirmed on lateral view. Radiological data, including multiple fluoroscopic views of the lumbar spine, reveal a spinal needle at the L4/5 translaminar space. Lateral views then show placement of the needle in the epidural space. Subsequent views show contrast material flowing superiorly and inferiorly in the epidural space. No vascular or intrathecal uptake is observed. At this point, using loss of resistance technique with saline and air, the epidural space was entered. This was confirmed following negative aspiration with injection of approximately 1.5cc of Isovue 200, showing excellent epidural flow without vascular or intrathecal uptake. At this point, 1cc of 1% lidocaine solution combined with 3cc or 20mg of dexamethasone and 80mg Depo medrol was injected without incident. The patient tolerated the procedure well without signs or symptoms of complicat ions prior to transfer to the recovery area continued monitoring without incident. The patient was then transferred to the recovery area where they were observed for an appropriate period of time after the injection. The patient reported a VAS score of 7 prior to the procedure and a post- procedure VAS of 0. POST OP INSTRUCTIONS The patient was provided a Pain Log to continue to record their response to the target-specific procedure prior to follow-up visit with their referring physician. Additionally, specific post-injection care instructions and a contact number to our office were provided if concerns arise regarding possible complications associated with the procedure are suspected.
== END 2020-08-09 08:56 | disposition home or self-care (01) ==
LOC: RAD 07:29
PROVIDERS: PCP Internal Medicine; Referring Provider Internal Medicine; Visit Provider Physical Medicine & Rehabilitation
DX: M51.16 Intervertebral disc disorders with radiculopathy, lumbar region (principal); M48.061 Spinal stenosis, lumbar region without neurogenic claudication
CPT/HCPCS: 62323; J0702; J1040; J1100; J2250; J3010

== ENCOUNTER → 2020-11-12 08:23 | Outpatient (CLI) | payer MEDICARE, OTHER, SELFPAY ==
[2020-11-12 14:54] LABS: COVID19 -Nasal RAPID Negative (Negative)
== END ==
PROVIDERS: PCP Internal Medicine; Visit Provider Physical Medicine & Rehabilitation
DX: Z20.822 Contact with and (suspected) exposure to COVID-19 (principal)
CPT/HCPCS: 87635; C9803

== ENCOUNTER 2020-11-13 14:50 | Outpatient (CLI) | payer MEDICARE, OTHER, SELFPAY ==
[2020-11-13] VITALS (8 sets, daily range): BP systolic 143–184; BP diastolic 72–84; PULSE 49–54; RESP 10–19; TEMP 36.1; O2SAT 94–98
--- NOTE | 2020-11-13 14:51 | DI.RAD.S_ITS ---
PROCEDURE: PAIN L/S TRANSFORAMINAL INJECT INDICATIONS: Right L1-2 transforaminal MARIE COMPARISON: [facility], , PAIN L/S TRANSFORAMINAL INJECT, 06/05/2020, 15:47. FINDINGS: Fluoroscopic spot filming was performed to verify placement of a spinal needle at the L1-L2 level, as labeled on the films. Appropriate location of the needle tip was confirmed by injection of iodinated contrast. IMPRESSION: Intraprocedural examination within normal limits. Dictated by: Simon Paniagua M.D. on 11/13/2020 at 15:02 Approved by: Simon Paniagua M.D. on 11/13/2020 at 15:03
[2020-11-13] MEDS: fentaNYL 100 MCG/2 ML INJ 50 MCG IV (15:23)
[2020-11-13] MEDS: MIDAZOLAM 5 MG/5 ML VIAL IV (15:23)
[2020-11-13] MEDS: BUPIVACAINE 0.25% (PF) VIAL 2 ML INJ (15:27)
[2020-11-13] MEDS: DEXAMETHASONE 10 MG/ML VIAL 20 MG INJ (15:27)
[2020-11-13] MEDS: BETAMETHASONE 30 MG/5 ML MDV 12 MG INJ (15:27)
[2020-11-13] MEDS: IOPAMIDOL 15 ML VIAL 3 ML INJ (15:27)
--- NOTE | 2020-11-13 15:36 | P.PCN_ITS ---
Date/Time/Diagnoses Date of procedure: 11/13/20 Time of procedure: 15:36 Pre-procedure diagnosis: 1. FORAMINAL STENOSIS WITH LE SYMPTOMS Post-procedure diagnosis: same Procedure Notes Procedure: 1. FLUOROSCOPICALLY GUIDED CONTRAST CONTROLLED TRANSFORAMINAL EPIDURAL STEROID INJECTION - RIGHT L1/2 TFESI Indications: Ronald is referred by Dr. Siddiqi for treatment of Foraminal Stenosis with right LE Symptoms Physician: Elfego Wylie Total Fluoroscopy time (seconds): 8 Total sedation minutes: 10 Complications: none Procedure in detail & Post-procedure care: FINDINGS Foraminal Nerve Root Compression secondary to disc disease and facet hypertrophy DESCRIPTION OF PROCEDURE Following review of allergy and review of potential side effects and complications, including, but not necessarily limited to, infection, allergic reaction, local tissue breakdown, stroke, temporary or permanent nerve injury, paralysis, and possible , the patient indicated that the patient understood and agreed to proceed. An informed consent document was signed by the patient, witnessed by a nurse, and placed in the patient's chart. Additionally, other treatment options including medications, modalities, and physical therapy were reviewed with the patient. After review of previous anaesthesic history and IV conscious sedation the patient was deemed safe to proceed with today?s procedure with IV conscious sedation as ASA class II designation. Safety time-out was performed to confirm patient ID, procedure to be performed and site of procedure. IV sedation was accomplished with a combination of 2mg of Versed and 50mcg of Fentanyl was administered by the RN after DO order, titrated to patient comfort during the course of the procedure while the patient remained responsive to all verbal comm ands In the prone position following sterile prep and drape of the lumbar region, the right L1/2 posterior neuroforamen was identified fluoroscopically. The skin was anesthetized via a 25-gauge 1.5-inch needle with 1% lidocaine solution. At this point, a 25-gauge 3.5-inch spinal needle was atraumatically introduced and advanced under fluoroscopic guidance through the posterior right L1/2 neurof oramen to approximately the anterior aspect of the canal. Depth was confirmed on lateral view. Following negative aspiration, injection of approximately 1.5cc of Isovue 200 under live fluoroscopy in the AP view confirmed excellent flow along the nerve root, into the epidural space without vascular or intrathecal uptake observed Radiological data, including multiple fluoroscopic views of the lumbosacral spine, reveal a spinal needle at the right L1/2 posterior neuroforamen. Subsequent views show flow of contrast material flowing superiorly and inferiorly along the nerve root confirming epidural flow. Subsequently, a test dose of 1.5 cc of 1% lidocaine solution was administered and patient was observed for two minutes for signs or symptoms of complications, including abdominal pain, shortness of breath, bilateral upper or lower extremity weakness, nausea and vomiting, prior to steroid injection. At this point, a total of 4cc or 20mg of dexamethasone and 12mg of betamethasone was injected without incident. The patient tolerated the procedure well without signs or symptoms of complications prior to transfer to the recovery area continued monitoring without incident. The patient was then transferred to the recovery area where they were observed for an appropriate time after the injection. The patient reported a VAS score of 7 prior to the procedure and a post-procedure VAS of 0. POST OP INSTRUCTIONS The patient was provided a Pain Log to continue to record their response to the target-specific procedure prior to follow-up visit with their referring physician. Additionally, specific post-injection care instructions and a contact number to our office were provided if concerns arise regarding possible complications associated with the procedure are suspected.
== END 2020-11-13 16:07 | disposition home or self-care (01) ==
LOC: RAD 14:51
PROVIDERS: PCP Internal Medicine; Referring Provider Physical Medicine & Rehabilitation; Visit Provider Physical Medicine & Rehabilitation
DX: M48.061 Spinal stenosis, lumbar region without neurogenic claudication (principal); M51.16 Intervertebral disc disorders with radiculopathy, lumbar region
CPT/HCPCS: 64483

== ENCOUNTER → 2021-06-11 06:59 | Outpatient (CLI) | payer MEDICARE, OTHER, SELFPAY ==
[2021-06-11 08:27] LABS: Hematocrit 46.8 % (41-53); Hemoglobin 15.9 g/dL (13.5-17.5); Mean Corpuscular HGB Conc 33.9 % (30-36); Mean Corpuscular Hemoglobin 29.9 PG (26-34); Mean Corpuscular Volume 88.2 fL (80-100); Platelet Count 199 X10^3/uL (150-400); Red Blood Cell Count 5.31 X10^6/uL (4.5-5.9); Red Cell Distribution Width 13.3 % (11.6-14.8); White Blood Cell Count 4.2 X10^3/uL (4.5-11.0)
[2021-06-11 08:42] LABS: Alanine Aminotransferase 32 IU/L (<50); Albumin 4.3 g/dL (3.5-5.0); Albumin Globulin Ratio 1.5 (1.0-2.8); Alkaline Phosphatase 55 U/L (38-126); Aspartate Aminotransferase 28 IU/L (17-59); BUN Creatinine Ratio 19.5 (6-22); Bilirubin Total 0.7 mg/dL (0.2-1.3); Blood Urea Nitrogen 23 mg/dL (9-20); Calcium 9.4 mg/dL (8.4-10.2); Carbon Dioxide 26 mmol/L (22-32); Chloride 105 mmol/L (98-107); Cholesterol 256 mg/dL (140-199); Estimated Glomerular Filt Rate > 60 mL/min (>60); Globulin 2.8 g/dL (1.7-4.1); Glucose 107 mg/dL (80-110); HDL Cholesterol 48 mg/dL (40-60); HEMOLYSIS < 15 (0-50); LDL Cholesterol Calculated 171 mg/dL (<100); Potassium 4.3 mmol/L (3.4-5.1); Sodium 140 mmol/L (137-145); Total Protein 7.1 g/dL (6.3-8.2); Triglycerides 186 mg/dL (35-150)
[2021-06-11 09:12] LABS: TSH w/ Reflex to FT4 2.98 uIU/mL (0.47-4.68)
== END ==
PROVIDERS: PCP Internal Medicine; Referring Provider Internal Medicine; Visit Provider Internal Medicine
DX: E78.2 Mixed hyperlipidemia (principal); I10 Essential (primary) hypertension
CPT/HCPCS: 36415; 80053; 80061; 84443; 85027

== ENCOUNTER → 2021-11-29 10:53 | Outpatient (CLI) | payer MEDICARE, OTHER, SELFPAY ==
[2021-11-29 11:45] LABS: BUN Creatinine Ratio 14.8 (6-22); Blood Urea Nitrogen 19 mg/dL (9-20); Calcium 9.3 mg/dL (8.4-10.2); Carbon Dioxide 29 mmol/L (22-32); Chloride 102 mmol/L (98-107); Cholesterol 243 mg/dL (140-199); Estimated Glomerular Filt Rate > 60 mL/min (>60); Glucose 98 mg/dL (80-110); HDL Cholesterol 50 mg/dL (40-60); HEMOLYSIS < 15 (0-50); LDL Cholesterol Calculated 156 mg/dL (<100); Potassium 4.4 mmol/L (3.4-5.1); Sodium 140 mmol/L (137-145); Triglycerides 184 mg/dL (35-150)
== END ==
PROVIDERS: PCP Internal Medicine; Referring Provider Internal Medicine; Visit Provider Internal Medicine
DX: E78.2 Mixed hyperlipidemia (principal); N40.1 Benign prostatic hyperplasia with lower urinary tract symptoms; I10 Essential (primary) hypertension; N13.8 Other obstructive and reflux uropathy
CPT/HCPCS: 36415; 80048; 80061; 84153

== ENCOUNTER → 2022-07-08 13:07 | Outpatient (ROUT) | payer MEDICARE, OTHER, SELFPAY ==
[2022-07-08 13:25] LABS: Blood Urea Nitrogen 19 mg/dL (9-20); Calcium 9.5 mg/dL (8.4-10.2); Carbon Dioxide 25 mmol/L (22-32); Chloride 101 mmol/L (98-107); Estimated Glomerular Filt Rate 56 mL/min (>60); Glucose 109 mg/dL (80-110); HEMOLYSIS < 15 (0-50); Potassium 3.8 mmol/L (3.4-5.1); Sodium 135 mmol/L (137-145)
== END ==
PROVIDERS: PCP Internal Medicine; Visit Provider Physician Assistant
DX: U07.1 COVID-19 (principal)
CPT/HCPCS: 80048

== ENCOUNTER → 2022-10-13 16:59 | Outpatient (CLI) | payer MEDICARE, OTHER, SELFPAY ==
[2022-10-13 18:14] LABS: BUN Creatinine Ratio 14.2 (6-22); Blood Urea Nitrogen 17 mg/dL (9-20); Calcium 9.3 mg/dL (8.4-10.2); Carbon Dioxide 25 mmol/L (22-32); Chloride 104 mmol/L (98-107); Estimated Glomerular Filt Rate > 60 mL/min (>60); Glucose 95 mg/dL (80-110); HEMOLYSIS < 15 (0-50); Potassium 4.1 mmol/L (3.4-5.1); Sodium 138 mmol/L (137-145)
== END ==
PROVIDERS: PCP Internal Medicine; Referring Provider Internal Medicine; Visit Provider Internal Medicine
DX: I10 Essential (primary) hypertension (principal); R31.9 Hematuria, unspecified
CPT/HCPCS: 80048

== ENCOUNTER → 2022-10-14 12:13 | Outpatient (CLI) | payer MEDICARE, OTHER, SELFPAY ==
--- NOTE | 2022-10-14 12:16 | DI.CT.S_ITS ---
PROCEDURE: CT KIDNEY URETER BLADDER (KUB) INDICATIONS: hematuria TECHNIQUE: Axial sections were acquired from the lung bases to the pubic symphysis. Coronal and sagittal reformats were performed. For radiation dose reduction, the following was used: automated exposure control, adjustment of mA and/or kV according to patient size. COMPARISON: [facility], CT, CT ABDOMEN PELVIS WO/W CON, 01/29/2018, 11:11. FINDINGS: Image quality: Excellent. Lung bases: Unremarkable. Heart: No significant findings. URINARY: Right Kidney: No stones or hydronephrosis. Right Ureter: No hydroureter. Left Kidney: No stones or hydronephrosis. Left Ureter: No hydroureter. Bladder: Normal wall thickness. No stones. ABDOMEN: Liver: Unremarkable. Gallbladder: Contracted, no calcified stones, within normal limits Biliary ducts: Unremarkable. Pancreas: Unremarkable. Spleen: Unremarkable. Adrenal Glands: Unremarkable. Stomach and Bowel: Moderate sigmoid diverticulosis without evidence of diverticulitis. Peritoneum: No abnormal intraperitoneal fluid. No free air. Ventral Wall: No hernia. Abdominal Nodes: No enlarged retroperitoneal or mesenteric lymph nodes. Vessels: Aorta and inferior vena cava are normal in size. PELVIS: Pelvic Organs: Mild prostate enlargement. Pelvic Nodes: Unremarkable. Miscellaneous: Bilateral fat containing inguinal hernias. Bones: Lumbar degenerative change. No lytic or blastic bony lesions. No compression fractures. IMPRESSION: 1. No renal stones, ureteral stones, or hydronephrosis. 2. Moderate sigmoid diverticulosis without evidence of diverticulitis. 3. Enlarged prostate. 4. No acute abdominal process noted. 5. Bilateral fat containing inguinal hernias. Dictated by: Harmeet Brady M.D. on 10/14/2022 at 15:21 Approved by: Harmeet Brady M.D. on 10/14/2022 at 15:29
== END ==
PROVIDERS: PCP Internal Medicine; Referring Provider Internal Medicine; Visit Provider Internal Medicine
DX: N40.0 Benign prostatic hyperplasia without lower urinary tract symptoms (principal); R31.9 Hematuria, unspecified; K57.30 Diverticulosis of large intestine without perforation or abscess without bleeding; K40.20 Bilateral inguinal hernia, without obstruction or gangrene, not specified as recurrent
CPT/HCPCS: 74176

== ENCOUNTER → 2022-12-17 15:20 | Outpatient (CLI) | payer MEDICARE, OTHER, SELFPAY ==
[2022-12-17 18:04] LABS: Alanine Aminotransferase 36 IU/L (<50); Albumin 4.3 g/dL (3.5-5.0); Albumin Globulin Ratio 1.3 (1.0-2.8); Alkaline Phosphatase 60 U/L (38-126); Aspartate Aminotransferase 29 IU/L (17-59); BUN Creatinine Ratio 17.6 (6-22); Bilirubin Total 0.5 mg/dL (0.2-1.3); Blood Urea Nitrogen 23 mg/dL (9-20); Carbon Dioxide 29 mmol/L (22-32); Chloride 100 mmol/L (98-107); Cholesterol 264 mg/dL (140-199); Estimated Glomerular Filt Rate 59 mL/min (>60); Globulin 3.4 g/dL (1.7-4.1); Glucose 83 mg/dL (80-110); HDL Cholesterol 43 mg/dL (40-60); HEMOLYSIS < 15 (0-50); LDL Cholesterol Calculated 162 mg/dL (<100); Potassium 3.5 mmol/L (3.4-5.1); Sodium 135 mmol/L (137-145); Total Protein 7.7 g/dL (6.3-8.2); Triglycerides 293 mg/dL (35-150)
[2022-12-17 18:28] LABS: Prostate Specific Antigen 0.835 ng/mL (0.10-4.00)
== END ==
PROVIDERS: PCP Internal Medicine; Referring Provider Internal Medicine; Visit Provider Internal Medicine
DX: E78.2 Mixed hyperlipidemia (principal); N40.1 Benign prostatic hyperplasia with lower urinary tract symptoms; N13.8 Other obstructive and reflux uropathy; I10 Essential (primary) hypertension
CPT/HCPCS: 36415; 80053; 80061; 84153

== ENCOUNTER → 2023-03-04 07:50 | Outpatient (CLI) | payer MEDICARE, OTHER, SELFPAY ==
--- NOTE | 2023-03-04 07:52 | DI.RAD.S_ITS ---
PROCEDURE: XR LUMBAR SPINE MIN 4V INDICATIONS: BACK PAIN TECHNIQUE: 5 views of the lumbar spine were acquired, including bilateral oblique views. COMPARISON: [facility], , XR LUMBAR SPINE 2-3V, 04/03/2020, 10:15. FINDINGS: Bones: 5 nonrib-bearing vertebrae are present. There is normal bony alignment. No vertebral body compression fractures. No suspicious bony lesions. Moderate disc height loss at all levels. Opposing endplate sclerosis at L4-5. Facet arthrosis L4 through S1. Soft tissues: Overlying bowel gas pattern is normal. No suspicious soft tissue calcifications. Oblique images: No pars defects. IMPRESSION: Moderate, multilevel degenerative disc disease and lower lumbar facet arthrosis. Dictated by: Ron Arias M.D. on 03/04/2023 at 9:06 Approved by: Ron Arias M.D. on 03/04/2023 at 9:07
== END ==
LOC: RAD 07:51
PROVIDERS: PCP Internal Medicine; Referring Provider Physical Medicine & Rehabilitation; Visit Provider Physical Medicine & Rehabilitation
DX: M47.27 Other spondylosis with radiculopathy, lumbosacral region (principal); M47.26 Other spondylosis with radiculopathy, lumbar region; M51.17 Intervertebral disc disorders with radiculopathy, lumbosacral region
CPT/HCPCS: 72110

== ENCOUNTER 2023-03-10 12:25 | Outpatient (CLI) | payer MEDICARE, OTHER, SELFPAY ==
[2023-03-10] VITALS (7 sets, daily range): BP systolic 108–135; BP diastolic 56–71; PULSE 57–61; RESP 14–22; TEMP 36.3; O2SAT 94–99
--- NOTE | 2023-03-10 13:00 | DI.RAD.S_ITS ---
PROCEDURE: PAIN L INTERLAMINAR/CAUDAL INJ INDICATIONS: RADICULOPATHY COMPARISON: [facility], XA, PAIN L INTERLAMINAR/CAUDAL INJ, 08/09/2020, 8:24. FINDINGS: Fluoroscopic spot filming was performed to verify placement of spinal needles at the L5-S1 level(s), as labeled on the films. Appropriate location(s) of the needle tip(s) was confirmed by injection of iodinated contrast. IMPRESSION: Fluoroscopic guidance utilized for an epidural steroid injection. Dictated by: Ron Arias M.D. on 03/10/2023 at 15:58 Approved by: Ron Arias M.D. on 03/10/2023 at 15:58
[2023-03-10] MEDS: MIDAZOLAM 2 MG/2 ML VIAL IV (13:10)
[2023-03-10] MEDS: BETAMETHASONE 30 MG/5 ML MDV 6 MG INJ (13:16)
[2023-03-10] MEDS: iopamidoL 15 ML VIAL 3 ML INJ (13:16)
[2023-03-10] MEDS: DEXAMETHASONE 10 MG/ML VIAL INJ ×2 (13:17→13:18)
[2023-03-10] MEDS: BUPIVACAINE 0.25% (PF) VIAL 2 ML INJ (13:17)
--- NOTE | 2023-03-10 13:32 | P.PCN_ITS ---
Date/Time/Diagnoses Date of procedure: 03/10/23 Time of procedure: 13:32 Pre-procedure diagnosis: 1. HNP WITH RADICULAR FEATURES, 2. MULTILEVEL CENTRAL STENOSIS, Post-procedure diagnosis: same Procedure Notes Procedure: 1. FLUOROSCOPICALLY GUIDED CONTRAST CONTROLLED INTERLAMINAR EPIDURAL STEROID INJECTION - L5/S1 Indications: Ronald is referred by Dr. Siddiqi for treatment of Bilateral Foraminal Stenosis L>R LE symptoms. Physician: Elfego Wylie Total Fluoroscopy time (seconds): 5 Total sedation minutes: 12 Complications: none Procedure in detail & Post-procedure care: FINDINGS Multilevel Central Spinal Stenosis with Nerve Root Compression DESCRIPTION OF PROCEDURE Fluoroscopically guided, contrast-controlled L5/S1 translaminar epidural steroid injection. Following review of allergy and review of potential side effects and complications, including, but not necessarily limited to, infection, allergic reaction, local tissue breakdown, temporary as well as permanent nerve injury, paralysis, stroke and possible , the patient indicated that the patient understood and agreed to proceed. An informed consent document was signed by the patient, witnessed by a nurse, and placed in the patient's chart. Additionally, other treatment options including modalities, medications, and physical therapy were reviewed with the patient. After review of previous anaesthesic history and IV conscious sedation the patient was deemed safe to proceed with today?s procedure with IV conscious sedation as ASA class II designation. Safety time-out was performed to confirm patient ID, procedure to be performed and site of procedure. IV sedation was accomplished with a combination of 2mg of Versed administered by the RN after DO order, titrated to patient comfort during the course of the procedure while the patient remained responsive to all verbal commands. In the prone position, following sterile prep and drape of the lumbar region, the L5/S1 translaminar space was identified fluoroscopically. The skin was anesthetized via a 25-gauge, 1.5-inch needle with 1% lidocaine solution. At this point, a 22-gauge short bevel spinal needle was atraumatically introduced and advanced under fluoroscopic guidance into the region of the L5/S1 translaminar space. Depth was confirmed on lateral view. Radiological data, including multiple fluoroscopic views of the lumbar spine, reveal a spinal needle at the L5/S1 translaminar space. Lateral views then show placement of the needle in the epidural space. Subsequent views show contrast material flowing superiorly and inferiorly in the epidural space. No vascular or intrathecal uptake is observed. At this point, using loss of resistance technique with saline and air, the epidural space was entered. This was confirmed following negative aspiration with injection of approximately 1.5cc of Isovue 200, showing excellent epidural flow without vascular or intrathecal uptake. At this point, 1 cc of 1% lidocain e solution combined with 2cc or 10mg of dexamethasone and 6mg of betamethasone was injected without incident. The patent tolerated the procedure without signs of symptoms of complications prior to transfer to the recovery area for further monitoring. The patient was then transferred to the recovery area where they were observed for an appropriate period of time after the injection. The patient reported a VAS score of 6 prior to the procedure and a post-procedure VAS of 0. POST OP INSTRUCTIONS The patient was provided a Pain Log to continue to record their response to the target-specific procedure prior to follow-up visit with their referring physician. Additionally, specific post-injection care instructions and a contact number to our office were provided if concerns arise regarding possible complications associated with the procedure are suspected.
== END 2023-03-10 13:50 | disposition home or self-care (01) ==
LOC: RAD 12:27
PROVIDERS: PCP Internal Medicine; Referring Provider Physical Medicine & Rehabilitation; Visit Provider Physical Medicine & Rehabilitation
DX: M51.17 Intervertebral disc disorders with radiculopathy, lumbosacral region (principal); M48.07 Spinal stenosis, lumbosacral region
CPT/HCPCS: 62323; 99152; J0702; J1100; J2250; J3490

== ENCOUNTER 2023-04-08 07:37 | Day surgery (SDC) | payer MEDICARE, OTHER, SELFPAY ==
[2023-04-08 08:08] VITALS: BP 131/84; PULSE 73; RESP 16; TEMP 35.9; O2SAT 97
[2023-04-08] MEDS: LACTATED RINGERS 1,000 ML 42 ML IV (08:19)
--- NOTE | 2023-04-08 08:31 | P.HP_ITS ---
History of Present Illness History of Present Illness Date Patient Seen: 04/08/23 Chief complaint: Colonoscopy Narrative: History of colon polyps [facility] Medical History (Updated 12/01/22 @ 08:38 by Bhupinder Siddiqi MD) Obstructive sleep apnea BPH w urinary obs/LUTS History of colon polyps GERD (gastroesophageal reflux disease) Chronic, continuous use of opioids Back pain, chronic Mixed hyperlipidemia Essential hypertension Herniated nucleus pulposus, L1-2 right Facet arthropathy, lumbar Lumbosacral radiculopathy at L5 Surgical History History of surgery on arm History of tonsillectomy Family History Father Depression Suicide Brother Lymphoma Social History (Updated 05/10/20 @ 10:47 by Elaine Tim LPN) household members: spouse Smoking Status: Former smoker alcohol intake: current Meds Home Medications and Allergies Home Medications Medication Instructions Recorded Confirmed Type aspirin 81 mg tablet,delayed 81 mg PO DAILY 11/29/21 04/08/23 History release omeprazole 20 mg capsule,delayed 20 mg PO DAILY 11/29/21 04/08/23 History release fluticasone propionate 50 2 spray intranasal DAILY #16 grams 12/30/21 04/08/23 Rx mcg/actuation nasal spray,suspension (Flonase Allergy Relief) pseudoephedrine HCl 30 mg tablet 60 mg (2 x 30 mg) PO Q4-6H PRN 12/30/21 04/08/23 Rx (Sudafed) nasal congestion #60 tabs pravastatin 10 mg tablet 10 mg PO BEDTIME #90 tabs 04/29/22 04/08/23 Rx olmesartan 20 mg tablet 20 mg PO DAILY #90 tabs 05/19/22 04/08/23 Rx chlorthalidone 25 mg tablet 25 mg PO DAILY blood pressure #90 12/01/22 04/08/23 Rx tabs hydrocodone 5 mg-acetaminophen 325 1 tab PO BID PRN pain #30 tabs 12/01/22 04/08/23 Rx mg tablet gabapentin 300 mg capsule 300 mg PO BID PRN back pain #180 12/04/22 04/08/23 Rx caps cyclobenzaprine 5 mg tablet 5 mg PO BID PRN muscle spasm #60 03/09/23 04/08/23 Rx tabs lorazepam 0.5 mg tablet See Rx Instructions PO DAILY PRN 03/09/23 04/08/23 Rx flight anxiety #4 tabs Allergies Allergy/AdvReac Type Severity Reaction Status Date / Time codeine Allergy Intermediate Rash Verified 04/08/23 07:57 rosuvastatin Allergy Intermediate Hives Verified 04/08/23 07:57 simvastatin Allergy Intermediate Hives Verified 04/08/23 07:57 carisoprodol [From Soma] Allergy Mild Rash Verified 04/08/23 07:57 oxaprozin Allergy Hives Verified 04/08/23 07:57 atorvastatin AdvReac Mild Nausea Verified 04/08/23 07:57 duloxetine AdvReac Mild Fatigued Verified 04/08/23 07:57 ibuprofen AdvReac Mild Verified 04/08/23 07:57 Exam Vital Signs (past 8 hours): - 04/08/23 08:08 Temperature 96.7 F L Pulse Rate 73 Respiratory Rate 16 Blood Pressure 131/84 Pulse Oximetry 97 Oxygen Delivery Method Room Air Oxygen Delivery Method Room Air Narrative Exam Narrative: Oropharynx free of lesions Chest clear to auscultation percussion Cardiac exam reveals no S3 or murmur Assessment & Plan Assessment & Plan narrative: History of colon polyps need for 5 year follow-up colonoscopy. Risks, benefits, alternatives have been explained
--- NOTE | 2023-04-08 09:02 | PM.OP.COLON ---
Operative Date/Time/Diagnoses Date of procedure: 04/08/23 Pre-op diagnosis: See indication Procedure & Clinicians Study performed: And findings colonoscopy Indications: History of colon polyps Surgeon: Rojas Christianson Procedure Notes Procedure in detail: After informed consent was obtained the patient was placed in left lateral decubitus position. The video colonoscope was introduced the rectum slowly advanced to cecum. Sigmoid was difficult to transverse. Preparation was good. On slow withdrawal mucosa was carefully examined. The scope was removed. The patient tolerated procedure well. Blood loss none Complications none Sedation mac Findings 1. Extensive sigmoid diverticulosis 2. Otherwise negative colonoscopy to cecum Patient should have follow-up colonoscopy in 7 years
[2023-04-08 09:06] VITALS: BP 106/64; PULSE 62; RESP 19; TEMP 36.6; O2SAT 20
[2023-04-08 09:11] VITALS: BP 124/74; PULSE 58; RESP 14; O2SAT 96
[2023-04-08 09:19] VITALS: BP 107/77; PULSE 58; RESP 16; TEMP 36.7; O2SAT 97
== END 2023-04-08 09:31 | disposition home or self-care (01) ==
PROVIDERS: PCP Internal Medicine; Referring Provider Internal Medicine Gastroenterology; Visit Provider Internal Medicine Gastroenterology
PROC: 0DJD8ZZ Inspection of Lower Intestinal Tract, Via Natural or Artificial Opening Endoscopic (ICD-10-PCS; CPT 45378; principal; 2023-04-08 08:30)
DX: Z12.11 Encounter for screening for malignant neoplasm of colon (principal); Z86.010 Personal history of colon polyps; K57.30 Diverticulosis of large intestine without perforation or abscess without bleeding
CPT/HCPCS: G0105; J2704

== ENCOUNTER 2023-04-21 11:02 | Emergency (ER) | payer MEDICARE, OTHER, SELFPAY ==
[2023-04-21] VITALS (7 sets, daily range): BP systolic 138–171; BP diastolic 75–81; PULSE 52–60; RESP 15; TEMP 36.4; O2SAT 96–97; BMI 29.8
--- NOTE | 2023-04-21 11:16 | ED_ITS ---
HPI - General Adult General Chief complaint: Abdominal Pain Stated complaint: ABD PAIN POST COLONOSCOPY Time Seen by Provider: 04/21/23 11:14 Source: patient Mode of arrival: Ambulatory History of Present Illness HPI narrative: 72yo M w/h/o BPH, GERD, chronic opiate use, chronic back pain, HTN, HLD presents with abdominal pain. He had a recent colonoscopy and states he was doing well after that. However, about 4-5 days ago, he developed intermittent left lower quadrant pain that has gradually worsened. It does not radiate. No nausea or vomiting, fevers or chills, chest pain, back pain, flank pain, urinary symptoms, shortness of breath, lightheadedness or passing out, bleeding, black or red stool, constipation, diarrhea, trauma, or other new concerns. No prior abdominal surgical history. He is taking Tylenol at home. Spouse here with him. No other new concerns. Per chart review, he had colonoscopy April 08 showing extensive sigmoid diverticulosis, otherwise negative colonoscopy to cecum per written report. Related Data Home Medications Medication Instructions Recorded Confirmed aspirin 81 mg tablet,delayed 81 mg PO DAILY 11/29/21 04/09/23 release omeprazole 20 mg capsule,delayed 20 mg PO DAILY 11/29/21 04/09/23 release Previous Rx's Medication Instructions Recorded fluticasone propionate 50 2 spray intranasal DAILY #16 grams 12/30/21 mcg/actuation nasal spray,suspension (Flonase Allergy Relief) pseudoephedrine HCl 30 mg tablet 60 mg (2 x 30 mg) PO Q4-6H PRN 12/30/21 (Sudafed) nasal congestion #60 tabs pravastatin 10 mg tablet 10 mg PO BEDTIME #90 tabs 04/29/22 olmesartan 20 mg tablet 20 mg PO DAILY #90 tabs 05/19/22 chlorthalidone 25 mg tablet 25 mg PO DAILY blood pressure #90 12/01/22 tabs hydrocodone 5 mg-acetaminophen 325 1 tab PO BID PRN pain #30 tabs 12/01/22 mg tablet gabapentin 300 mg capsule 300 mg PO BID PRN back pain #180 12/04/22 caps cyclobenzaprine 5 mg tablet 5 mg PO BID PRN muscle spasm #60 03/09/23 tabs lorazepam 0.5 mg tablet See Rx Instructions PO DAILY PRN 03/09/23 flight anxiety #4 tabs amoxicillin 875 mg-potassium 1 tab PO TID 10 days #30 tabs 04/21/23 clavulanate 125 mg tablet ondansetron 4 mg disintegrating 4 mg PO Q8H PRN nausea and 04/21/23 tablet vomiting #10 tabs Allergies Allergy/AdvReac Type Severity Reaction Status Date / Time codeine Allergy Intermediate Rash Verified 04/21/23 12:14 rosuvastatin Allergy Intermediate Hives Verified 04/21/23 12:14 simvastatin Allergy Intermediate Hives Verified 04/21/23 12:14 carisoprodol [From Soma] Allergy Mild Rash Verified 04/21/23 12:14 oxaprozin Allergy Hives Verified 04/21/23 12:14 atorvastatin AdvReac Mild Nausea Verified 04/21/23 12:14 duloxetine AdvReac Mild Fatigued Verified 04/21/23 12:14 ibuprofen AdvReac Mild Verified 04/21/23 12:14 Review of Systems Review of Systems Narrative: Constitutional: no fever, no chills Eyes: no visual disturbance, no discharge Ears, Nose, Mouth, Throat: no rhinorrhea, no sore throat Cardiovascular: no chest pain, no palpitations Respiratory: no cough, no shortness of breath Gastrointestinal: + abdominal pain, no vomiting, no diarrhea Genitourinary: no dysuria, no hematuria Musculoskeletal: no back pain, no neck stiffness Skin: no rash, no wound Neurological: no focal weakness, no focal numbness Patient History Medical History Obstructive sleep apnea BPH w urinary obs/LUTS History of colon polyps GERD (gastroesophageal reflux disease) Chronic, continuous use of opioids Back pain, chronic Mixed hyperlipidemia Essential hypertension Herniated nucleus pulposus, L1-2 right Facet arthropathy, lumbar Lumbosacral radiculopathy at L5 Surgical History History of surgery on arm History of tonsillectomy Family History Father Depression Suicide Brother Lymphoma Social History (Updated 05/10/20 @ 10:47 by Elaine Tim LPN) household members: spouse Smoking Status: Former smoker alcohol intake: current Smoking Status: Former smoker alcohol intake frequency: 0-2 drinks per day Substance Use Type: does not use Exam Narrative Exam Narrative: Const: no acute distress, non toxic appearing; calm, conversant, pleasant Eyes: PERRLA, EOMI ENT: mucous membranes moist Neck: supple, non-tender Resp: no respiratory distress, clear to auscultation bilaterally Card: regular rate and rhythm, no murmurs Abd: +LLQ tenderness, no other abdominal tenderness, negative Lilly's sign, no rigidity or rebound or guarding Back: no T or L spine tenderness, no CVA tenderness bilaterally Extrem: no deformities, no swelling bilateral lower extremities Neuro: ANOx4, metal machine setter grossly intact, grossly intact sensation and strength all extremities Skin: no rash, warm and dry Initial Vital Signs Initial Vital Signs: Vital Signs Temperature 97.6 F 04/21/23 11:05 Pulse Rate 56 L 04/21/23 11:05 Respiratory Rate 15 04/21/23 11:05 Blood Pressure 171/81 H 04/21/23 11:05 Pulse Oximetry 96 04/21/23 11:05 Oxygen Delivery Method Room Air 04/21/23 11:05 Course Course Course Narrative: This presentation is highly suggestive of diverticulitis and a currently well- appearing male with nonsurgical abdomen, with focal left lower quadrant tenderness, in the setting of recent confirmation of substantial diverticulosis. He is currently afebrile, well perfused. I have considered broad differential including but not limited to muscle strain or sprain, pyelonephritis, nephrolithiasis, prostatitis, bowel obstruction, aortic dissection, volvulus, hernia, among others. However as above, diverticulitis seems much more likely clinically. We are obtaining CBC, CMP, lipase, urinalysis, CT abdomen and pelvis with contrast. I am giving fluids, oxycodone, Zofran and will closely reassess. Patient understands and agrees with plan. CBC reassuring, no leukocytosis or anemia or thrombocytopenia. Lipase reassuring. CMP reassuring. Urinalysis with trace blood appropriate for follow up but no clear infection. Informed patient of this. Radiology review of imaging below, which I agree with on my independent review: CT: ABDOMEN: Liver: No solid mass. Mild diffuse hepatic steatosis. Gallbladder: No radiopaque gallstones or wall thickening. Biliary ducts: No biliary dilation. Pancreas: No ductal dilation. Spleen: Size is within normal limits. Adrenal Glands: No adrenal nodules. Kidneys and Ureters: No hydronephrosis. No solid mass. No complex renal cystic lesion which requires follow up. Resolution mild left hydronephrosis. Stomach and Bowel: [id number] sigmoid diverticulosis. This occurs in the descending colon as well. There is inflammatory change in the fat anterior to the distal descending colon suggesting mild acute diverticulitis. No free air or free fluid or abscess cavity identified. Peritoneum: No abnormal intraperitoneal fluid. No free air. Ventral Wall: No significant ventral hernia. Abdominal Nodes: No retroperitoneal or mesenteric adenopathy by size criteria. Vessels: Aorta and inferior vena cava are normal in size. PELVIS: Pelvic Organs: Enlarged prostate Bladder: Mild diffuse thickening of the bladder wall may indicate a degree of bladder outlet obstruction. Pelvic Nodes: No enlarged lymph nodes. Miscellaneous: Small bilateral fat containing inguinal hernias. Bones: No aggressive osseous abnormality. IMPRESSION: 1. Mild acute diverticulitis of the distal descending colon. 2. Enlarged prostate with possible mild findings of bladder outlet obstruction. 3. Small bilateral fat containing inguinal hernias. 4. There is no left hydronephrosis present currently. Dictated by: Harmeet Brady M.D. on 04/21/2023 at 12:31 Patient currently stable with CT findings of diverticulitis highly consistent with his presentation. No abscess or perforation. He does not appear septic. He is tolerating p.o.. He appears stable for discharge on t.i.d. Augmentin with Zofran prescription, close follow up and return precautions. He agrees with plan, with no other new concerns. Copy of CT imaging given. Repeat exam and vital signs reassuring. Questions answered. Plan reviewed. Patient discharged in stable condition. Orders Ordered: ED Orders 04/21/23 11:34 Complete Blood Count AUTO DIFF Stat Comprehensive Metabolic Panel Stat Lipase Stat 04/21/23 12:00 EKG-12 Lead Stat 04/21/23 12:07 CT abdomen pelvis w con Stat 04/21/23 12:15 Urinalysis and Microscopic Stat Discontinued Medications Amoxicillin/Clavulanate Potassium (Amoxicillin/Clav 875/125 Mg) 1 tab PO NOW ONE Stop: 04/21/23 13:05 Last Admin: 04/21/23 13:23 Dose: 1 tab Documented By: BS Sodium Chloride (Normal Saline 0.9%) 1,000 mls @ 1,000 mls/hr IV BOLUS ONE Stop: 04/21/23 13:06 Last Infusion: 04/21/23 13:06 Dose: Infused Documented By: Admin: 04/21/23 12:24 Dose: 1,000 mls/hr Documented By: FRANCES Ondansetron HCl (Ondansetron 4 Mg/2 Ml Inj) 4 mg IV NOW PRN PRN Reason: Nausea And Vomiting Oxycodone HCl (Oxycodone Ir 5 Mg Tablet) 10 mg PO NOW ONE Stop: 04/21/23 12:08 Last Admin: 04/21/23 12:24 Dose: 10 mg Documented By: FRANCES Vital Signs Vital signs: Vital Signs - 8 hr 04/21/23 11:05 04/21/23 11:38 04/21/23 11:39 Temperature 97.6 F Pulse Rate 56 L 55 L 56 L Respiratory Rate 15 Blood Pressure 171/81 H Pulse Oximetry 96 97 96 Oxygen Delivery Method Room Air Room Air 04/21/23 11:39 04/21/23 12:00 04/21/23 12:00 Temperature Pulse Rate 52 L Respiratory Rate Blood Pressure 142/81 H 146/76 H Pulse Oximetry 96 Oxygen Delivery Method 04/21/23 12:30 04/21/23 12:31 04/21/23 12:31 Temperature Pulse Rate 59 L 60 Respiratory Rate Blood Pressure 158/77 H Pulse Oximetry 97 97 Oxygen Delivery Method Room Air 04/21/23 13:00 04/21/23 13:00 Temperature Pulse Rate 58 L Respiratory Rate Blood Pressure 138/75 Pulse Oximetry 97 Oxygen Delivery Method Room Air Medical Decision Making Lab Data 04/21/23 11:34 04/21/23 11:34 Labs: Lab Results 04/21/23 04/21/23 Range/Units 11:34 12:15 WBC 5.1 (4.5-11.0) X10^3/uL RBC 5.28 (4.5-5.9) X10^6/uL Hgb 16.2 (13.5-17.5) g/dL Hct 46.4 (41-53) % MCV 87.8 (80-100) fL MCH 30.6 (26-34) PG MCHC 34.9 (30-36) % RDW 12.9 (11.6-14.8) % Plt Count 185 (150-400) X10^3/uL Neut % (Auto) 56.3 (50-75) % Lymph % (Auto) 26.5 (25-40) % Garrett % (Auto) 12.3 (3-14) % Eos % (Auto) 3.5 (2-4) % Baso % (Auto) 1.4 (0-2) % Neut # (Auto) 2900 (5983-3614) /uL Lymph # (Auto) 1400 (7645-6548) /uL Garrett # (Auto) 600 (0-900) /uL Eos # (Auto) 200 (0-450) /uL Baso # (Auto) 100 (0-100) /uL Sodium 140 (137-145) mmol/L Potassium 3.8 (3.4-5.1) mmol/L Chloride 106 (98-107) mmol/L Carbon Dioxide 27 (22-32) mmol/L BUN 18 (9-20) mg/dL Creatinine 1.17 (0.66-1.25) mg/dL Estimated GFR > 60 (>60) mL/min BUN/Creatinine Ratio 15.4 (6-22) Glucose 99 (80-110) mg/dL Calcium 9.5 (8.4-10.2) mg/dL Total Bilirubin 0.6 (0.2-1.3) mg/dL AST 25 (17-59) IU/L ALT 31 (<50) IU/L Alkaline Phosphatase 66 (38-126) U/L Total Protein 7.9 (6.3-8.2) g/dL Albumin 4.3 (3.5-5.0) g/dL Globulin 3.6 (1.7-4.1) g/dL Albumin/Globulin Ratio 1.2 (1.0-2.8) Lipase 61 (23-300) U/L Urine Color Yellow Urine Appearance Clear Urine pH 5.5 (4.5-8.0) Ur Specific [place] 1.015 (1.000-1.035) Urine Protein Negative (Negative) Urine Glucose (UA) Negative (Negative) g/dL Urine Ketones Negative (NEGATIVE) Urine Occult Blood Trace-intact (Negative) Urine Nitrate Negative (Negative) Urine Bilirubin Negative (NEGATIVE) Urine Urobilinogen 0.2 (0.2) E.U./dL Ur Leukocyte Esterase Negative (NEGATIVE) Urine RBC 0-1/hpf (0-5/HPF) Urine WBC 0-1/hpf (0-5/HPF) Ur Squamous Epith Cells 0-1 /hpf (0-5/HPF) Urine Bacteria None seen (None) Ur Culture Indicated? Cult not indicated Vol Urine Centrifuged 10ml (spun) Discharge Plan Departure Patient Disposition: Home Clinical Impression: Diverticulitis, Abdominal pain Instructions: Diverticulitis Activity Restrictions/Additional Instructions: It was a pleasure taking care of you today. It is important to fully read and understand the below. Please ask us if you have any questions. We think the most likely cause of your pain is diverticulitis, consistent with your exam and CT scan. Please take antibiotics as prescribed and be re- evaluated within 3-5 days by your primary doctor. Take this she and your attached CT. I am prescribing Augmentin and Zofran. No tests or assessments are perfect, and your condition could belt changer time. If your symptoms change or worsen, it is very important you immediately seek medical care. If you have any new or worsening pain, []shortness of breath, fever, vomiting, confusion, numbness, weakness, or anything else that concerns you, please immediately seek medical care. If you have been prescribed any medications: please read the drug package inserts on how to properly use the medication and any potential side effects. If you had labs (blood tests) or imaging (CT scan or x-rays) done during your visit: please follow up on the results of these with your primary care doctor, as discussed. In addition, please know the results we received today may be preliminary. Our usual practice is to follow up on tests within a few days of a patient's discharge from the Emergency Department and notify you of any changes. These may lead to changes to your treatment plan. However, the best way to obtain and interpret these test results is through your Primary Care Provider. If you need to update your contact information, please stop by the front end software engineer and alert the Registration personnel before you leave the Emergency Department. Thank you for the opportunity to participate in your healthcare. We are always here and happy to see you in the future. --- PLEASE TAKE THE ATTACHED IMAGING TO YOUR DOCTORS: ABDOMEN: Liver: No solid mass. Mild diffuse hepatic steatosis. Gallbladder: No radiopaque gallstones or wall thickening. Biliary ducts: No biliary dilation. Pancreas: No ductal dilation. Spleen: Size is within normal limits. Adrenal Glands: No adrenal nodules. Kidneys and Ureters: No hydronephrosis. No solid mass. No complex renal cystic lesion which requires follow up. Resolution mild left hydronephrosis. Stomach and Bowel: [id number] sigmoid diverticulosis. This occurs in the descending colon as well. There is inflammatory change in the fat anterior to the distal descending colon suggesting mild acute diverticulitis. No free air or free fluid or abscess cavity identified. Peritoneum: No abnormal intraperitoneal fluid. No free air. Ventral Wall: No significant ventral hernia. Abdominal Nodes: No retroperitoneal or mesenteric adenopathy by size criteria. Vessels: Aorta and inferior vena cava are normal in size. PELVIS: Pelvic Organs: Enlarged prostate Bladder: Mild diffuse thickening of the bladder wall may indicate a degree of bladder outlet obstruction. Pelvic Nodes: No enlarged lymph nodes. Miscellaneous: Small bilateral fat containing inguinal hernias. Bones: No aggressive osseous abnormality. IMPRESSION: 1. Mild acute diverticulitis of the distal descending colon. 2. Enlarged prostate with possible mild findings of bladder outlet obstruction. 3. Small bilateral fat containing inguinal hernias. 4. There is no left hydronephrosis present currently. Dictated by: Harmeet Brady M.D. on 04/21/2023 at 12:31 Prescriptions: New amoxicillin-pot clavulanate 875-125 mg tablet 1 tab PO TID 10 Days Qty: 30 0RF ondansetron 4 mg tablet,disintegrating 4 mg PO Q8H PRN (Reason: nausea and vomiting) Qty: 10 0RF No Action pravastatin 10 mg tablet 10 mg PO BEDTIME Qty: 90 3RF olmesartan 20 mg tablet 20 mg PO DAILY Qty: 90 3RF gabapentin 300 mg capsule 300 mg PO BID PRN (Reason: back pain) Qty: 180 3RF Rx Instructions: This script replaces the previous script. lorazepam 0.5 mg tablet See Rx Instructions PO DAILY PRN (Reason: flight anxiety) Qty: 4 2RF Rx Instructions: 1-2 before air travel as needed for flight anxiety chlorthalidone 25 mg tablet 25 mg PO DAILY Qty: 90 3RF hydrocodone-acetaminophen 5-325 mg tablet 1 tab PO BID PRN (Reason: pain) Qty: 30 0RF pseudoephedrine HCl [Sudafed] 30 mg tablet 60 mg PO Q4-6H PRN (Reason: nasal congestion) Qty: 60 5RF Rx Instructions: DNExceed 4 doses/24h fluticasone propionate [Flonase Allergy Relief] 50 mcg/actuation spray,suspension 2 spray intranasal DAILY Qty: 16 5RF Rx Instructions: administer into each nostril aspirin 81 mg tablet,delayed release (DR/EC) 81 mg PO DAILY omeprazole 20 mg capsule,delayed release(DR/EC) 20 mg PO DAILY cyclobenzaprine 5 mg tablet 5 mg PO BID PRN (Reason: muscle spasm) Qty: 60 1RF Referrals: Bhupinder Siddiqi MD [Primary Care Provider] - Stand Alone Forms: Patient Portal/API
[2023-04-21 11:47] LABS: Add Manual Diff / Slide Review NO; Basophils Absolute Auto 100 /uL (0-100); Basophils Percent Auto 1.4 % (0-2); Eosinophils Absolute Auto 200 /uL (0-450); Eosinophils Percent Auto 3.5 % (2-4); Hematocrit 46.4 % (41-53); Hemoglobin 16.2 g/dL (13.5-17.5); Lymphocytes Absolute Auto 1400 /uL (1100-4500); Lymphocytes Percent Auto 26.5 % (25-40); Mean Corpuscular HGB Conc 34.9 % (30-36); Mean Corpuscular Hemoglobin 30.6 PG (26-34); Mean Corpuscular Volume 87.8 fL (80-100); Monocytes Absolute Auto 600 /uL (0-900); Monocytes Percent Auto 12.3 % (3-14); Neutrophils Absolute Auto 2900 /uL (1500-7000); Neutrophils Percent Auto 56.3 % (50-75); Platelet Count 185 X10^3/uL (150-400); Red Blood Cell Count 5.28 X10^6/uL (4.5-5.9); Red Cell Distribution Width 12.9 % (11.6-14.8); White Blood Cell Count 5.1 X10^3/uL (4.5-11.0)
[2023-04-21 12:06] LABS: Alanine Aminotransferase 31 IU/L (<50); Albumin 4.3 g/dL (3.5-5.0); Albumin Globulin Ratio 1.2 (1.0-2.8); Alkaline Phosphatase 66 U/L (38-126); Aspartate Aminotransferase 25 IU/L (17-59); BUN Creatinine Ratio 15.4 (6-22); Bilirubin Total 0.6 mg/dL (0.2-1.3); Blood Urea Nitrogen 18 mg/dL (9-20); Calcium 9.5 mg/dL (8.4-10.2); Carbon Dioxide 27 mmol/L (22-32); Chloride 106 mmol/L (98-107); Estimated Glomerular Filt Rate > 60 mL/min (>60); Globulin 3.6 g/dL (1.7-4.1); Glucose 99 mg/dL (80-110); HEMOLYSIS < 15 (0-50); Lipase 61 U/L (23-300); Potassium 3.8 mmol/L (3.4-5.1); Sodium 140 mmol/L (137-145); Total Protein 7.9 g/dL (6.3-8.2)
--- NOTE | 2023-04-21 12:07 | DI.CT.S_ITS ---
PROCEDURE: CT ABDOMEN PELVIS W CON INDICATIONS: LLQ pain, suspect diverticulitis TECHNIQUE: After the administration of intravenous contrast, axial sections acquired from the lung bases to the pubic symphysis. Coronal and sagittal reformats were performed. For radiation dose reduction, the following was used: automated exposure control, adjustment of mA and/or kV according to patient size. COMPARISON: [facility], CT, CT ABDOMEN PELVIS W CON, 01/14/2018, 9:35. FINDINGS: Image quality: Diagnostic. Lower Chest: No significant findings. ABDOMEN: Liver: No solid mass. Mild diffuse hepatic steatosis. Gallbladder: No radiopaque gallstones or wall thickening. Biliary ducts: No biliary dilation. Pancreas: No ductal dilation. Spleen: Size is within normal limits. Adrenal Glands: No adrenal nodules. Kidneys and Ureters: No hydronephrosis. No solid mass. No complex renal cystic lesion which requires follow up. Resolution mild left hydronephrosis. Stomach and Bowel: [id number] sigmoid diverticulosis. This occurs in the descending colon as well. There is inflammatory change in the fat anterior to the distal descending colon suggesting mild acute diverticulitis. No free air or free fluid or abscess cavity identified. Peritoneum: No abnormal intraperitoneal fluid. No free air. Ventral Wall: No significant ventral hernia. Abdominal Nodes: No retroperitoneal or mesenteric adenopathy by size criteria. Vessels: Aorta and inferior vena cava are normal in size. PELVIS: Pelvic Organs: Enlarged prostate Bladder: Mild diffuse thickening of the bladder wall may indicate a degree of bladder outlet obstruction. Pelvic Nodes: No enlarged lymph nodes. Miscellaneous: Small bilateral fat containing inguinal hernias. Bones: No aggressive osseous abnormality. IMPRESSION: 1. Mild acute diverticulitis of the distal descending colon. 2. Enlarged prostate with possible mild findings of bladder outlet obstruction. 3. Small bilateral fat containing inguinal hernias. 4. There is no left hydronephrosis present currently. Dictated by: Harmeet Brady M.D. on 04/21/2023 at 12:31 Approved by: Harmeet Brady M.D. on 04/21/2023 at 12:43
[2023-04-21] MEDS: SODIUM CHLORIDE 0.9% 1,000 ML 1000 ML IV (12:24)
[2023-04-21] MEDS: OXYCODONE IR 5 MG TABLET 10 MG PO (12:24)
[2023-04-21 12:41] LABS: Appearance Urine UA CLEAR; Bilirubin Urine UA NEGATIVE (NEGATIVE); Color Urine UA YELLOW; Glucose Urine UA NEGATIVE (Negative); Ketones Urine UA NEGATIVE (NEGATIVE); Leukocyte Esterase Urine UA NEGATIVE (NEGATIVE); Nitrite Urine UA NEGATIVE (Negative); Occult Blood Urine UA TRACE-INTACT (Negative); Protein Urine UA NEGATIVE (Negative); Specific Gravity Urine UA 1.015 (1.000-1.035); Urobilinogen Urine UA 0.2 E.U./dL (0.2); pH Urine UA 5.5 (4.5-8.0)
[2023-04-21 12:49] LABS: RBC Urine 0-1/HPF (0-5/HPF); Urine Volume 10mL (spun); WBC Urine 0-1/HPF (0-5/HPF)
[2023-04-21 12:50] LABS: Bacteria Urine None Seen; Culture Indicated Urine Cult Not Indicated; Squamous Epithelial Cell Urine 0-1 /HPF (0-5/HPF)
[2023-04-21] MEDS: AMOXICILLIN/CLAV 875/125 MG 1 TAB PO (13:23)
== END 2023-04-21 13:35 | disposition home or self-care (01) ==
PROVIDERS: Emergency Provider Emergency Medicine; PCP Internal Medicine
DX: K57.92 Diverticulitis of intestine, part unspecified, without perforation or abscess without bleeding (principal); R10.32 Left lower quadrant pain
CPT/HCPCS: 36415; 74177; 80053; 81001; 83690; 85025; 93005; 93010; 96360; 99284; Q9967

== ENCOUNTER → 2023-09-15 10:09 | Outpatient (CLI) | payer MEDICARE, OTHER, SELFPAY ==
--- NOTE | 2023-09-15 10:10 | DI.RAD.S_ITS ---
PROCEDURE: XR THORACIC SPINE 2V INDICATIONS: Thoracic pain/strain TECHNIQUE: 2 views of the thoracic spine were acquired. COMPARISON: None. FINDINGS: Bones: No fractures or dislocations. No suspicious bony lesions. 12 pairs of ribs are noted, and appear intact where visualized. Soft tissues: No paravertebral stripe thickening. IMPRESSION: No acute bony abnormality. Dictated by: Ron Arias M.D. on 09/15/2023 at 10:51 Approved by: Ron Arias M.D. on 09/15/2023 at 10:51
== END ==
PROVIDERS: PCP Internal Medicine; Referring Provider Physician Assistant Surgical; Visit Provider Physician Assistant Surgical
DX: M54.6 Pain in thoracic spine (principal)
CPT/HCPCS: 72070

== ENCOUNTER → 2023-10-08 17:01 | Outpatient (CLI) | payer MEDICARE, OTHER, SELFPAY ==
[2023-10-08 17:38] LABS: Appearance Urine UA CLEAR; Bilirubin Urine UA NEGATIVE (NEGATIVE); Color Urine UA YELLOW; Glucose Urine UA NEGATIVE (Negative); Ketones Urine UA TRACE (NEGATIVE); Leukocyte Esterase Urine UA NEGATIVE (NEGATIVE); Nitrite Urine UA NEGATIVE (Negative); Occult Blood Urine UA TRACE-INTACT (Negative); Protein Urine UA NEGATIVE (Negative); pH Urine UA 5.5 (4.5-8.0)
[2023-10-08 17:48] LABS: Amorphous Sediment Urine 1+; Bacteria Urine None Seen; Culture Indicated Urine Cult Not Indicated; RBC Urine None Seen (0-5/HPF); Squamous Epithelial Cell Urine None Seen (0-5/HPF); Urine Volume 10mL (spun); WBC Urine None Seen (0-5/HPF)
== END ==
LOC: LAB 17:02
PROVIDERS: PCP Internal Medicine; Referring Provider Internal Medicine; Visit Provider Internal Medicine
DX: R10.9 Unspecified abdominal pain (principal)
CPT/HCPCS: 81001

== ENCOUNTER → 2023-10-12 14:58 | Outpatient (CLI) | payer MEDICARE, OTHER, SELFPAY ==
--- NOTE | 2023-10-12 14:59 | DI.US.S_ITS ---
PROCEDURE: US RENAL COMPLETE INDICATIONS: RIGHT FLANK PAIN TECHNIQUE: Real-time scanning was performed of the kidneys and bladder, with image documentation. COMPARISON: None. FINDINGS: Kidneys: Kidneys are normal in size. Right kidney measures 11 cm long; left kidney measures 11.5 cm long. Right renal cortical thickness is 1.3 cm; left renal cortical thickness is 1.9 cm. Renal cortical echotexture is normal. No hydronephrosis or nephrolithiasis. No suspicious solid mass lesions. Benign, anechoic cyst on the inferior pole of the left kidney measuring 5.7 cm. Bladder: Pre-void bladder volume is 162 mL. Post-void residual is 15 mL. Pre-void images demonstrate no intraluminal masses or stones. On pre-void images, neither ureteral jets are noted with color Doppler interrogation. (Of note, ureteral jets may not be detectable in up to 25% of cases due to insufficient differences in specific gravity between ureteral and bladder urine). Miscellaneous: No free pelvic fluid. IMPRESSION: No findings to explain the patient's right flank pain. No sonographic evidence of stones. No hydronephrosis. Dictated by: Ron Arias M.D. on 10/13/2023 at 10:36 Approved by: Ron Arias M.D. on 10/13/2023 at 10:37
== END ==
PROVIDERS: PCP Internal Medicine; Referring Provider Internal Medicine; Visit Provider Internal Medicine
DX: N28.1 Cyst of kidney, acquired (principal); R10.9 Unspecified abdominal pain; M54.9 Dorsalgia, unspecified; G89.29 Other chronic pain; S29.019D Strain of muscle and tendon of unspecified wall of thorax, subsequent encounter
CPT/HCPCS: 76770

== ENCOUNTER → 2024-03-03 09:35 | Outpatient (CLI) | payer MEDICARE, OTHER, SELFPAY ==
[2024-03-03 10:34] LABS: Aspartate Aminotransferase 33 IU/L (17-59); BUN Creatinine Ratio 16.1 (6-22); Blood Urea Nitrogen 25 mg/dL (9-20); Calcium 9.9 mg/dL (8.4-10.2); Carbon Dioxide 27 mmol/L (22-32); Chloride 103 mmol/L (98-107); Cholesterol 268 mg/dL (140-199); Estimated Glomerular Filt Rate 48 mL/min (>60); Glucose 107 mg/dL (80-110); HDL Cholesterol 51 mg/dL (40-60); HEMOLYSIS < 15 (0-50); LDL Cholesterol Calculated 170 mg/dL (<100); Potassium 3.8 mmol/L (3.4-5.1); Sodium 138 mmol/L (137-145); Triglycerides 237 mg/dL (35-150)
== END ==
PROVIDERS: PCP Internal Medicine; Referring Provider Internal Medicine; Visit Provider Internal Medicine
DX: E78.2 Mixed hyperlipidemia (principal); N40.1 Benign prostatic hyperplasia with lower urinary tract symptoms; N13.8 Other obstructive and reflux uropathy; M47.816 Spondylosis without myelopathy or radiculopathy, lumbar region; I10 Essential (primary) hypertension
CPT/HCPCS: 36415; 80048; 80061; 84153; 84450

== ENCOUNTER → 2024-08-10 09:35 | Outpatient (CLI) | payer MEDICARE, OTHER, SELFPAY | PROVIDERS: PCP Internal Medicine; Visit Provider Internal Medicine | DX: J02.9 Acute pharyngitis, unspecified (principal); M51.26 Other intervertebral disc displacement, lumbar region | CPT/HCPCS: 87070 ==

== ENCOUNTER → 2024-09-13 16:43 | Outpatient (CLI) | payer MEDICARE, OTHER, SELFPAY ==
[2024-09-13 17:17] LABS: Appearance Urine UA CLEAR; Bilirubin Urine UA NEGATIVE (NEGATIVE); Color Urine UA YELLOW; Glucose Urine UA NEGATIVE (Negative); Ketones Urine UA NEGATIVE (NEGATIVE); Leukocyte Esterase Urine UA NEGATIVE (NEGATIVE); Nitrite Urine UA NEGATIVE (Negative); Occult Blood Urine UA 1+ (Negative); Protein Urine UA NEGATIVE (Negative); Specific Gravity Urine UA 1.015 (1.000-1.035); Urobilinogen Urine UA 0.2 E.U./dL (0.2); pH Urine UA 6.0 (4.5-8.0)
[2024-09-13 17:22] LABS: Culture Indicated Urine Cult Not Indicated
== END ==
PROVIDERS: PCP Internal Medicine; Referring Provider Internal Medicine; Visit Provider Internal Medicine
DX: S29.019A Strain of muscle and tendon of unspecified wall of thorax, initial encounter (principal); R39.9 Unspecified symptoms and signs involving the genitourinary system
CPT/HCPCS: 81001

== ENCOUNTER 2024-12-20 00:01 | Emergency (ER) | payer MEDICARE, OTHER, SELFPAY ==
[2024-12-20 00:07] VITALS: BP 147/80; PULSE 55; RESP 16; TEMP 36.6; O2SAT 96; BMI 29.7
--- NOTE | 2024-12-20 01:32 | ED_ITS ---
HPI - Extremity Injury (Lower)
--- NOTE | 2024-12-20 01:32 | ED.LOWEXIN ---
HPI - Extremity Injury (Lower) General Chief Complaint: Extremity Injury, Lower Stated Complaint: L Leg Pain Time Seen by Provider: 12/20/24 00:16 Source: patient Mode of arrival: Ambulatory History of Present Illness HPI Narrative: 74-year-old male with history of low back pain, prior epidural spinal injections, awaiting further injections upcoming weeks with Dr Silva, increasing low back pain for the last couple of weeks, for the last 4 days having left lower extremity pain, sometimes to thigh but mostly in calf. No specific calf injury recalled. No calf swelling, no history of blood clots. No chest pain or shortness of breath. He took old supply of Soma with mild relief. Has limp with this left-sided leg pain. No injury trauma new activities recalled. No fevers or chills. No cancers known. No spinal surgeries recalled. Denies incontinence to urine or stool. No troubles with constipation or urinary tension symptoms. No numbness or tingling to the scrotal perineal perirectal region. Related Data Home Medications ?Medication ?Instructions ?Recorded ?Confirmed omeprazole 20 mg capsule,delayed 20 mg PO DAILY 11/29/21 09/13/24 release Previous Rx's ?Medication ?Instructions ?Recorded chlorthalidone 25 mg tablet 25 mg PO DAILY blood pressure #90 03/03/24 tabs pravastatin 10 mg tablet 10 mg PO BEDTIME #90 tabs 03/03/24 olmesartan 20 mg tablet 20 mg PO DAILY #90 tabs 05/12/24 gabapentin 300 mg capsule 300 mg PO BID PRN back pain #180 05/23/24 caps hydrocodone 5 mg-acetaminophen 325 1 tab PO BID PRN pain #30 tabs 08/10/24 mg tablet lorazepam 0.5 mg tablet See Rx Instructions PO DAILY PRN 08/10/24 flight anxiety #4 tabs baclofen 10 mg tablet 10 mg PO TID PRN muscle spasm #30 12/16/24 tabs cyclobenzaprine 10 mg tablet 10 mg PO TID #14 tabs 12/20/24 hydrocodone 7.5 mg-acetaminophen 1 tab PO Q6H PRN pain #10 tabs 12/20/24 325 mg tablet naproxen 500 mg tablet 500 mg PO BID 7 days #14 tabs 12/20/24 prednisone 20 mg tablet 40 mg (2 x 20 mg) PO DAILY 5 days 12/20/24 #10 tabs Allergies Allergy/AdvReac Type Severity Reaction Status Date / Time codeine Allergy Intermediate Rash Verified 12/20/24 00:09 rosuvastatin Allergy Intermediate Hives Verified 12/20/24 00:09 simvastatin Allergy Intermediate Hives Verified 12/20/24 00:09 carisoprodol (From Soma) Allergy Mild Rash Verified 12/20/24 00:09 guaifenesin (From Robitussin) Allergy Mild Hives Verified 12/20/24 00:09 oxaprozin Allergy Hives Verified 12/20/24 00:09 atorvastatin AdvReac Mild Nausea Verified 12/20/24 00:09 duloxetine AdvReac Mild Fatigued Verified 12/20/24 00:09 ibuprofen AdvReac Mild Verified 12/20/24 00:09 Patient History Medical History Back pain, chronic BPH w urinary obs/LUTS Chronic, continuous use of opioids Essential hypertension Facet arthropathy, lumbar GERD (gastroesophageal reflux disease) Herniated nucleus pulposus, L1-2 right History of colon polyps Lumbosacral radiculopathy at L5 Mixed hyperlipidemia Obstructive sleep apnea Surgical History History of surgery on arm History of tonsillectomy Family History Father Depression Suicide Brother Lymphoma Social History (Updated 05/10/20 @ 10:47 by Elaine Tim LPN) household members: spouse Smoking Status: Former smoker alcohol intake: current Smoking Status: Former smoker alcohol intake frequency: 0-2 drinks per day Exam Narrative Exam Narrative: GENERAL: Well-developed patient, in mild distress. HEAD: Atraumatic. Normocephalic. EYES: Pupils equal round and reactive. Extraocular motions intact. No scleral icterus. No injection or drainage. ENT: Nose without bleeding, purulent drainage. Throat without erythema, tonsillar hypertrophy or exudate. Airway patent. NECK: Trachea midline. Non tender CARDIOVASCULAR: Regular rate and rhythm without murmurs, gallops, or rubs. RESPIRATORY: Clear to auscultation. Breath sounds equal bilaterally. No wheezes, rales, or rhonchi. GASTROINTESTINAL: Abdomen soft, non-tender, nondistended. EXTREMITIES: No edema or joint tenderness to left lower extremity.. No tenderness at origin of gastrocnemius/soleus muscles, no calf pain with dorsiflexion at ipsilateral left ankle. BACK: Nontender without deformity or crepitance. No flank tenderness. No tenderness midline or paraspinal musculature, no skin changes lumbar or thoracic. Straight leg raise 45? left-sided with leg pain. NEURO: AOx3. Motor functions grossly nonfocal. SKIN: No rash or erythema of visible areas Initial Vital Signs Initial Vital Signs: Vital Signs Temperature 97.8 F 12/20/24 00:07 Pulse Rate 55 L 12/20/24 00:07 Respiratory Rate 16 12/20/24 00:07 Blood Pressure 147/80 H 12/20/24 00:07 Pulse Oximetry 96 12/20/24 00:07 Oxygen Delivery Method Room Air 12/20/24 00:07 Course Orders Ordered: Discontinued Medications Hydrocodone Bitart/Acetaminophen (Hydrocodone/Acet 5/325 Prepack) 1 bottle MISC DIRECTED ONE Stop: 12/20/24 02:23 Last Admin: 12/20/24 02:39 Dose: 1 bottle Documented By: LILIA Cyclobenzaprine HCl (Cyclobenzaprine 10 Mg Tablet) 10 mg PO NOW ONE Stop: 12/20/24 02:14 Last Admin: 12/20/24 02:32 Dose: 10 mg Documented By: LILIA Cyclobenzaprine HCl (Cyclobenzaprine 10 Mg Prepack) 1 bottle MISC DIRECTED ONE Stop: 12/20/24 02:14 Last Admin: 12/20/24 02:39 Dose: 1 bottle Documented By: LILIA Hydromorphone HCl (Hydromorphone 1 Mg/Ml Syringe) 1 mg IM NOW ONE Stop: 12/20/24 02:14 Last Admin: 12/20/24 02:31 Dose: 1 mg Documented By: LILIA Ketorolac Tromethamine (Ketorolac 30 Mg/Ml Vial) 30 mg IM NOW ONE Stop: 12/20/24 02:14 Last Admin: 12/20/24 02:31 Dose: 30 mg Documented By: LILIA Prednisone (Prednisone 20 Mg Tablet) 60 mg PO NOW ONE Stop: 12/20/24 02:14 Last Admin: 12/20/24 02:32 Dose: 60 mg Documented By: LILIA Vital Signs Vital signs: Vital Signs - 8 hr 12/20/24 00:07 12/20/24 02:53 Temperature 97.8 F Pulse Rate 55 L 50 L Respiratory Rate 16 16 Blood Pressure 147/80 H 152/77 H Pulse Oximetry 96 98 Oxygen Delivery Method Room Air Room Air MDM - Extremity Injury (Lower) MDM Narrative Medical decision making narrative: 74-year-old male with ongoing back pain, prior EPSI awaiting next spinal injections. Now with 4 days duration nontraumatic left lower extremity pain, sometimes at thigh, mostly at catheterization. No direct calf tenderness or swelling or redness, doubt DVT, negative Homans, exam also seems inconsistent with gastrocnemius/soleus tear. No signs and symptoms cauda equina syndrome at present. Suspect radiculopathy. Discussed CT scanning lumbar spine, declined. IM Dilaudid, IM Toradol, oral cyclobenzaprine, oral prednisone. Symptoms improved, discharged home with . Home pack cyclobenzaprine, hydrocodone/APAP. Prescription sent for further prednisone pulse, hydrocodone/APAP, cyclobenzaprine, naproxen. Follow up with Dr. Green, call his office later today during open hours to see if his ePSS eye appointment could be moved up. Discharged home with family. Return precautions discussed. Discharge Plan Departure Patient Disposition: Home Clinical Impression: Pain of left leg, Chronic low back pain Activity Restrictions/Additional Instructions: History of back pain, prior back injections, scheduled to have another back injection upcoming. Now with nontraumatic left calf pain. No incontinence of urine or stool, no numbness or tingling of the genital perirectal perineal region. Painful with movement of the calf. No direct tenderness to the gastrocnemius or worse pain with dorsiflexion of the ankle, seems less likely to have gastrocnemius or soleus tear or strain of the muscle. Suspect radiculopathy related pain. Trial of pain medication, muscle relaxants, steroid. Injectable pain medications and anti-inflammatory medications given, with oral muscle relaxant cyclobenzaprine. Prescription sent to your requested pharmacy for hydrocodone/acetaminophen, further cyclobenzaprine muscle relaxant, prednisone further steroid, naproxen anti-inflammatory medication. Call the office of Dr. Green tomorrow during regular hours, to see if your back injection procedure can be moved up. Return to this/nearest emergency department for any change worsening symptoms or concerns prior. We did briefly discuss CT scanning of your lumbar spine, likely more effective to have MRI lumbar spine imaging which is not available at this hour, and there is considerable radiation exposure with CT scanning. Hold off on CT imaging for now. Further imaging as needed through your chronic low back pain management team. Prescriptions: New cyclobenzaprine 10 mg tablet 10 mg PO TID Qty: 14 0RF prednisone 20 mg tablet 40 mg PO DAILY 5 Days Qty: 10 0RF naproxen 500 mg tablet 500 mg PO BID 7 Days Qty: 14 0RF hydrocodone-acetaminophen 7.5-325 mg tablet 1 tab PO Q6H PRN (Reason: pain) Qty: 10 0RF No Action olmesartan 20 mg tablet 20 mg PO DAILY Qty: 90 3RF gabapentin 300 mg capsule 300 mg PO BID PRN (Reason: back pain) Qty: 180 3RF baclofen 10 mg tablet 10 mg PO TID PRN (Reason: muscle spasm) Qty: 30 1RF hydrocodone-acetaminophen 5-325 mg tablet 1 tab PO BID PRN (Reason: pain) Qty: 30 0RF lorazepam 0.5 mg tablet See Rx Instructions PO DAILY PRN (Reason: flight anxiety) Qty: 4 2RF Rx Instructions: 1-2 before air travel as needed for flight anxiety omeprazole 20 mg capsule,delayed release(DR/EC) 20 mg PO DAILY pravastatin 10 mg tablet 10 mg PO BEDTIME Qty: 90 3RF chlorthalidone 25 mg tablet 25 mg PO DAILY Qty: 90 3RF Referrals: Bhupinder Siddiqi MD [Primary Care Provider, Internal Medicine] Stand Alone Forms: Patient Portal/API
[2024-12-20] MEDS: KETOROLAC 30 MG/ML VIAL IM (02:31)
[2024-12-20] MEDS: CYCLOBENZAPRINE 10 MG TABLET PO (02:32)
[2024-12-20] MEDS: CYCLOBENZAPRINE 10 MG PREPACK 1 BOTTLE MISC (02:39)
[2024-12-20 02:53] VITALS: BP 152/77; PULSE 50; RESP 16; O2SAT 98
== END 2024-12-20 02:54 | disposition home or self-care (01) ==
PROVIDERS: Emergency Provider Emergency Medicine; PCP Internal Medicine
DX: M79.605 Pain in left leg (principal); M54.50 Low back pain, unspecified
CPT/HCPCS: 96372; 99283; J1171; J1885

== ENCOUNTER 2024-12-23 10:01 | Emergency (ER) | payer MEDICARE, OTHER, SELFPAY ==
[2024-12-23 10:04] VITALS: BP 162/82; PULSE 55; RESP 14; TEMP 36.1; O2SAT 94; BMI 29.7
--- NOTE | 2024-12-23 10:09 | DI.US.S_ITS ---
PROCEDURE: US PERIPH VENOUS LOW EXTREM LT
--- NOTE | 2024-12-23 10:12 | ED_ITS ---
HPI - Extremity Problem
--- NOTE | 2024-12-23 10:12 | ED.EXTPRO ---
HPI - Extremity Problem General Chief complaint: Extremity Problem,Nontraumatic Stated complaint: Left ankle pain radiating to groin area 7 days Time Seen by Provider: 12/23/24 10:09 Mode of arrival: Ambulatory History of Present Illness HPI Narrative: 74-year-old with a history of low back pain prior spinal injections seen back 3 days ago for back pain now presents with left leg pain radiating from left ankle to left knee but also raised to the left thigh. He did also get chiropractor adjustments which his back is no longer causing pain. He denies any chest pain shortness breath dyspnea on exertion. Nothing makes it better or worse. No recent long distance travel, or trauma to the area or any history of DVT. Other than what is stated 14 point review system is negative. Related Data Home Medications ?Medication ?Instructions ?Recorded ?Confirmed omeprazole 20 mg capsule,delayed 20 mg PO DAILY 11/29/21 09/13/24 release Previous Rx's ?Medication ?Instructions ?Recorded chlorthalidone 25 mg tablet 25 mg PO DAILY blood pressure #90 03/03/24 tabs pravastatin 10 mg tablet 10 mg PO BEDTIME #90 tabs 03/03/24 olmesartan 20 mg tablet 20 mg PO DAILY #90 tabs 05/12/24 gabapentin 300 mg capsule 300 mg PO BID PRN back pain #180 05/23/24 caps hydrocodone 5 mg-acetaminophen 325 1 tab PO BID PRN pain #30 tabs 08/10/24 mg tablet lorazepam 0.5 mg tablet See Rx Instructions PO DAILY PRN 08/10/24 flight anxiety #4 tabs baclofen 10 mg tablet 10 mg PO TID PRN muscle spasm #30 12/16/24 tabs cyclobenzaprine 10 mg tablet 10 mg PO TID #14 tabs 12/20/24 hydrocodone 7.5 mg-acetaminophen 1 tab PO Q6H PRN pain #10 tabs 12/20/24 325 mg tablet naproxen 500 mg tablet 500 mg PO BID 7 days #14 tabs 12/20/24 prednisone 20 mg tablet 40 mg (2 x 20 mg) PO DAILY 5 days 12/20/24 #10 tabs Allergies Allergy/AdvReac Type Severity Reaction Status Date / Time codeine Allergy Intermediate Rash Verified 12/23/24 10:04 rosuvastatin Allergy Intermediate Hives Verified 12/23/24 10:04 simvastatin Allergy Intermediate Hives Verified 12/23/24 10:04 carisoprodol (From Soma) Allergy Mild Rash Verified 12/23/24 10:04 guaifenesin (From Robitussin) Allergy Mild Hives Verified 12/23/24 10:04 oxaprozin Allergy Hives Verified 12/23/24 10:04 atorvastatin AdvReac Mild Nausea Verified 12/23/24 10:04 duloxetine AdvReac Mild Fatigued Verified 12/23/24 10:04 ibuprofen AdvReac Mild Verified 12/23/24 10:04 Review of Systems Review of Systems ROS Unobtainable: All systems reviewed & are unremarkable except as noted in HPI and below Patient History Medical History Back pain, chronic BPH w urinary obs/LUTS Chronic, continuous use of opioids Essential hypertension Facet arthropathy, lumbar GERD (gastroesophageal reflux disease) Herniated nucleus pulposus, L1-2 right History of colon polyps Lumbosacral radiculopathy at L5 Mixed hyperlipidemia Obstructive sleep apnea Surgical History History of surgery on arm History of tonsillectomy Family History Father Depression Suicide Brother Lymphoma Social History (Updated 05/10/20 @ 10:47 by Elaine Tim LPN) household members: spouse Smoking Status: Unknown if ever smoked alcohol intake: current Smoking Status: Unknown if ever smoked alcohol intake frequency: 0-2 drinks per day Exam Narrative Exam Narrative: GENERAL: [74] year old patient appears stated age. Well-developed patient, in mild distress. HEAD: Atraumatic. Normocephalic. EYES: Pupils equal round and reactive. Extraocular motions intact. No scleral icterus. No injection or drainage. ENT: Nose without bleeding, purulent drainage. Throat without erythema, tonsillar hypertrophy or exudate. Airway patent. NECK: Trachea midline. Non tender CARDIOVASCULAR: Regular rate and rhythm without murmurs, gallops, or rubs. RESPIRATORY: Clear to auscultation. Breath sounds equal bilaterally. No wheezes, rales, or rhonchi. GASTROINTESTINAL: Abdomen soft, non-tender, nondistended. EXTREMITIES: No edema or joint tenderness. Equal symmetrical calf bilaterally non tender on exam motor sensory intact 2 DP +2 PT cap refill less than 2 seconds bilateral lower extremity BACK: Nontender without deformity or crepitance. No flank tenderness. NEURO: AOx3. SKIN: No rash or erythema of visible areas Initial Vital Signs Initial Vital Signs: Vital Signs Temperature 97.0 F L 12/23/24 10:04 Pulse Rate 55 L 12/23/24 10:04 Respiratory Rate 14 12/23/24 10:04 Blood Pressure 162/82 H 12/23/24 10:04 Pulse Oximetry 94 12/23/24 10:04 Oxygen Delivery Method Room Air 12/23/24 10:04 Course Orders Ordered: ED Orders 12/23/24 10:09 periph venous low extrem lt Stat Vital Signs Vital signs: Vital Signs - 8 hr 12/23/24 10:04 Temperature 97.0 F L Pulse Rate 55 L Respiratory Rate 14 Blood Pressure 162/82 H Pulse Oximetry 94 Oxygen Delivery Method Room Air MDM - Extremity (Nontraumatic) MDM Narrative Medical decision making narrative: All lab work, vital signs, nurse triage note, medication list, previous ER visits, and all imaging reviewed. Ultrasound negative for DVT. Differential dx - DVT, superficial thrombophebilitis muscle strain. DC home to alternate stretching massage Tylenol ibuprofen for which he is already on muscle relaxants and steroids. Discharge Plan Departure Patient Disposition: Home Clinical Impression: Acute leg pain Qualifiers: Laterality: left Qualified Code(s): M79.605 - Pain in left leg Instructions: DI for Leg Pain Activity Restrictions/Additional Instructions: Return with new or worsening symptoms. Alternate Tylenol ibuprofen stretching massaging as needed for pain control. Follow up PCP in 1-2 weeks if no improvement in symptoms. Prescriptions: No Action olmesartan 20 mg tablet 20 mg PO DAILY Qty: 90 3RF gabapentin 300 mg capsule 300 mg PO BID PRN (Reason: back pain) Qty: 180 3RF baclofen 10 mg tablet 10 mg PO TID PRN (Reason: muscle spasm) Qty: 30 1RF hydrocodone-acetaminophen 5-325 mg tablet 1 tab PO BID PRN (Reason: pain) Qty: 30 0RF lorazepam 0.5 mg tablet See Rx Instructions PO DAILY PRN (Reason: flight anxiety) Qty: 4 2RF Rx Instructions: 1-2 before air travel as needed for flight anxiety omeprazole 20 mg capsule,delayed release(DR/EC) 20 mg PO DAILY pravastatin 10 mg tablet 10 mg PO BEDTIME Qty: 90 3RF chlorthalidone 25 mg tablet 25 mg PO DAILY Qty: 90 3RF cyclobenzaprine 10 mg tablet 10 mg PO TID Qty: 14 0RF prednisone 20 mg tablet 40 mg PO DAILY 5 Days Qty: 10 0RF naproxen 500 mg tablet 500 mg PO BID 7 Days Qty: 14 0RF hydrocodone-acetaminophen 7.5-325 mg tablet 1 tab PO Q6H PRN (Reason: pain) Qty: 10 0RF Referrals: Bhupinder Siddiqi MD [Primary Care Provider, Internal Medicine] Stand Alone Forms: Patient Portal/API
== END 2024-12-23 11:27 | disposition home or self-care (01) ==
PROVIDERS: Emergency Provider Family Medicine; PCP Internal Medicine
DX: M79.605 Pain in left leg (principal)
CPT/HCPCS: 93971; 99281; 99283

== ENCOUNTER → 2024-12-28 10:23 | Outpatient (CLI) | payer MEDICARE, OTHER, SELFPAY ==
--- NOTE | 2024-12-28 10:24 | DI.RAD.S_ITS ---
PROCEDURE: XR LUMBAR SPINE MIN 4V
== END ==
PROVIDERS: PCP Internal Medicine; Referring Provider Physical Medicine & Rehabilitation; Visit Provider Physical Medicine & Rehabilitation
DX: M47.816 Spondylosis without myelopathy or radiculopathy, lumbar region (principal); M51.26 Other intervertebral disc displacement, lumbar region; M48.061 Spinal stenosis, lumbar region without neurogenic claudication
CPT/HCPCS: 72110

== ENCOUNTER → 2025-01-08 07:11 | Outpatient (CLI) | payer MEDICARE, OTHER, SELFPAY ==
--- NOTE | 2025-01-08 07:12 | DI.MRI.S_ITS ---
PROCEDURE: MR LUMBAR SPINE WO CON INDICATIONS: Left lower extremity radiculopathy TECHNIQUE: Noncontrast sagittal T1 spin echo and T2 fast echo, sagittal STIR, and T2 fast spin echo through the lumbar spine. In cases with scoliosis, additional coronal T2 fast spin echo may be performed. COMPARISON: [facility], MR, MR LUMBAR SPINE WO CON, 05/17/2020, 7:41. FINDINGS: Image quality: Excellent. Alignment and Curvature: There is normal bony alignment. Bone Marrow: Marrow is of normal overall signal. No acute vertebral body compression fractures. Spinal Cord: Conus medullaris terminates at the L1-L2 level. Visualized cord demonstrates normal signal and size. Paraspinous Soft Tissues: No paravertebral masses. T12-L1: Disc bulge. Facet hypertrophy. No canal stenosis or foraminal stenosis. L1-L2: Interval increase in disc bulge, moderate. Development of mild superimposed right paracentral disc protrusion. Facet hypertrophy. Epidural lipomatosis. Mild canal stenosis. No significant foraminal stenosis. L2-L3: Mild disc bulge. Mild facet hypertrophy. No canal stenosis or foraminal stenosis. L3-L4: Development of increased disc bulge and disc height loss. Facet hypertrophy. Epidural lipomatosis. Mild canal stenosis. Mild bilateral foraminal stenosis. L4-L5: Chronic disc height loss. Disc bulge. Facet hypertrophy. Epidural lipomatosis. Mild canal stenosis. Moderate right foraminal narrowing and mild left foraminal narrowing. L5-S1: Unchanged findings. Disc bulge. Facet hypertrophy. No significant canal stenosis. Severe left foraminal stenosis with left foraminal L5 nerve root impingement. IMPRESSION: 1. Underlying multilevel facet arthropathy. 2. Mild progression of findings at L1-L2 with development of a small right paracentral disc protrusion. 3. Canal stenosis is mild at L1-L2 and L3-L4 and L4-L5. 4. Unchanged severe left foraminal narrowing with left foraminal L5 nerve root impingement at L5-S1. Dictated by: Harmeet Brady M.D. on 01/09/2025 at 8:22 Approved by: Harmeet Brady M.D. on 01/09/2025 at 8:40
== END ==
LOC: MRI 07:12
PROVIDERS: PCP Internal Medicine; Referring Provider Internal Medicine; Visit Provider Physical Medicine & Rehabilitation
DX: M51.16 Intervertebral disc disorders with radiculopathy, lumbar region (principal); M51.17 Intervertebral disc disorders with radiculopathy, lumbosacral region; M48.061 Spinal stenosis, lumbar region without neurogenic claudication; M48.07 Spinal stenosis, lumbosacral region; M47.26 Other spondylosis with radiculopathy, lumbar region; M47.27 Other spondylosis with radiculopathy, lumbosacral region
CPT/HCPCS: 72148

== ENCOUNTER 2025-02-07 08:29 | Outpatient (CLI) | payer MEDICARE, OTHER, SELFPAY ==
[2025-02-07] VITALS (7 sets, daily range): BP systolic 111–144; BP diastolic 67–80; PULSE 65–71; RESP 14–19; TEMP 36.6; O2SAT 93–98
[2025-02-07] MEDS: MIDAZOLAM 2 MG/2 ML VIAL IV (09:48)
[2025-02-07] MEDS: BETAMETHASONE 30 MG/5 ML MDV 12 MG INJ (09:53)
[2025-02-07] MEDS: BETAMETHASONE 30 MG/5 ML MDV 6 MG INJ (09:53)
--- NOTE | 2025-02-07 10:10 | P.PCN_ITS ---
Date/Time/Diagnoses Date of procedure: 02/07/25 Time of procedure: 10:10 Pre-procedure diagnosis: 1. FORAMINAL STENOSIS WITH LE SYMPTOMS Post-procedure diagnosis: same Procedure Notes Procedure: 1. FLUOROSCOPICALLY GUIDED CONTRAST CONTROLLED TRANSFORAMINAL EPIDURAL STEROID INJECTION - Left L5/S1 Indications: Ronald is referred by Dr. Siddiqi for treatment of Foraminal Stenosis with Left LE Symptoms Physician: Elfego Wylie Total Fluoroscopy time (seconds): 12 Total sedation minutes: 15 Complications: none Procedure in detail & Post-procedure care: FINDINGS Foraminal Nerve Root Compression secondary to disc disease and facet hypertrophy DESCRIPTION OF PROCEDURE Following review of allergy and review of potential side effects and complications, including, but not necessarily limited to, infection, allergic reaction, local tissue breakdown, stroke, temporary or permanent nerve injury, paralysis, and possible , the patient indicated that the patient understood and agreed to proceed. An informed consent document was signed by the patient, witnessed by a nurse, and placed in the patient's chart. Additionally, other treatment options including medications, modalities, and physical therapy were reviewed with the patient. After review of previous anaesthesic history and IV conscious sedation the patient was deemed safe to proceed with today?s procedure with IV conscious sedation as ASA class II designation. Safety time-out was performed to confirm patient ID, procedure to be performed and site of procedure. IV sedation was accomplished with a combination of 2mg of Versed was administered by the RN after DO order, titrated to patient comfort during the course of the procedure while the patient remained responsive to all verbal commands In the prone position following sterile prep and drape of the lumbar region, the Left L5/S1 posterior neuroforamen was identified fluoroscopically. The skin was anesthetized via a 25-gauge 1.5-inch needle with 1% lidocaine solution. At this point, a 25-gauge 3.5-inch spinal needle was atraumatically introduced and advanced under fluoroscopic guidance through the posterior Left L5/S1 neuroforamen to approximately the anterior aspect of the canal. Depth was confirmed on lateral view. Following negative aspiration, injection of approximately 1.5 cc of Isovue 200 under live fluoroscopy in the AP view confirmed excellent flow along the nerve root, into the epidural space without vascular or intrathecal uptake observed Radiological data, including multiple fluoroscopic views of the lumbosacral spine, reveal a spinal needle at the Left L5/S1 posterior neuroforamen. Subsequent views show flow of contrast material flowing superiorly and inferiorly along the nerve root confirming epidural flow. Subsequently, a test dose of 1.5cc of 0.25%marcaine solution was administered and patient was observed for two minutes for signs or symptoms of complications, including abdominal pain, shortness of breath, bilateral upper or lower extremity weakness, nausea and vomiting, prior to steroid injection. At this point, a total of 3cc or 10mg of dexamethasone and 12mg of betamethasone was injected without incident. The procedure tolerated the procedure well without signs or symptoms of complications prior to transfer to the recovery area continued monitoring without incident. The patient was then transferred to the recovery area where they were observed for an appropriate time after the injection. The patient reported a VAS score of 7 prior to the procedure and a post-procedure VAS of 0. POST OP INSTRUCTIONS The patient was provided a Pain Log to continue to record their response to the target-specific procedure prior to follow-up visit with their referring phys ician. Additionally, specific post-injection care instructions and a contact number to our office were provided if concerns arise regarding possible complications associated with the procedure are suspected.
--- NOTE | 2025-02-07 10:10 | P.PCN_ITS ---
Date/Time/Diagnoses Date of procedure: 02/07/25 Time of procedure: 10:10 Pre-procedure diagnosis: 1. FORAMINAL STENOSIS WITH LE SYMPTOMS Post-procedure diagnosis: same Procedure Notes Procedure: 1. FLUOROSCOPICALLY GUIDED CONTRAST CONTROLLED TRANSFORAMINAL EPIDURAL STEROID INJECTION - LEFT L3/4 TFESI Indications: Ronald is referred by Dr. Siddiqi for treatment of Foraminal Stenosis with left LE Symptoms Physician: Elfego Wylie Total Fluoroscopy time (seconds): 12 Total sedation minutes: 15 Complications: none Procedure in detail & Post-procedure care: FINDINGS Foraminal Nerve Root Compression secondary to disc disease and facet hypertrophy DESCRIPTION OF PROCEDURE Following review of allergy and review of potential side effects and complications, including, but not necessarily limited to, infection, allergic reaction, local tissue breakdown, stroke, temporary or permanent nerve injury, paralysis, and possible , the patient indicated that the patient understood and agreed to proceed. An informed consent document was signed by the patient, witnessed by a nurse, and placed in the patient's chart. Additionally, other treatment options including medications, modalities, and physical therapy were reviewed with the patient. After review of previous anaesthesic history and IV conscious sedation the patient was deemed safe to proceed with today?s procedure with IV conscious sedation as ASA class II designation. Safety time-out was performed to confirm patient ID, procedure to be performed and site of procedure. IV sedation was accomplished with a combination of 2mg of Versed was administered by the RN after DO order, titrated to patient comfort during the course of the procedure while the patient remained responsive to all verbal commands In the prone position following sterile prep and drape of the lumbar region, the left L3/4 posterior neuroforamen was identified fluoroscopically. The skin was anesthetized via a 25-gauge 1.5-inch needle with 1% lidocaine solution. At this point, a 25-gauge 3.5-inch spinal needle was atraumatically introduced and advanced under fluoroscopic guidance through the posterior left L3/4 neuroforamen to approximately the anterior aspect of the canal. Depth was confirmed on lateral view. Following negative aspiration, injection of approximately 1.5 cc of Isovue 200 under live fluoroscopy in the AP view confirmed excellent flow along the nerve root, into the epidural space without vascular or intrathecal uptake observed Radiological data, including multiple fluoroscopic views of the lumbosacral spine, reveal a spinal needle at the left L3/4 posterior neuroforamen. Subsequent views show flow of contrast material flowing superiorly and inferiorly along the nerve root confirming epidural flow. Subsequently, a test dose of 1.5cc of 0.25% marcaine solution was administered and patient was observed for two minutes for signs or symptoms of complications, including abdominal pain, shortness of breath, bilateral upper or lower extremity weakness, nausea and vomiting, prior to steroid injection. At this point, a total of 3cc or 10mg of dexamethasone and 12mg betamethasone was injected without incident. The patient tolerated the procedure well without signs or symptoms of complications prior to transfer to the recovery area continued monitoring without incident. The patient was then transferred to the recovery area where they were observed for an appropriate time after the injection. The patient reported a VAS score of 7 prior to the procedure and a post-procedure VAS of 0. POST OP INSTRUCTIONS The patient was provided a Pain Log to continue to record their response to the target-specific procedure prior to follow-up visit with their referring physician. Additionally, specific post-injection care instructions and a contact number to our office were provided if concerns arise regarding possible complications associated with the procedure are suspected.
== END 2025-02-07 10:22 | disposition home or self-care (01) ==
PROVIDERS: PCP Internal Medicine; Referring Provider Internal Medicine; Visit Provider Physical Medicine & Rehabilitation
DX: M48.07 Spinal stenosis, lumbosacral region (principal); M48.061 Spinal stenosis, lumbar region without neurogenic claudication; M51.17 Intervertebral disc disorders with radiculopathy, lumbosacral region; M51.16 Intervertebral disc disorders with radiculopathy, lumbar region; M47.26 Other spondylosis with radiculopathy, lumbar region; M47.27 Other spondylosis with radiculopathy, lumbosacral region
CPT/HCPCS: 64483; 64484; 99152; J0702; J1100; J2250